=== PATIENT | female | born 1975 | race African-American/Black ===

== ENCOUNTER 2025-03-26 09:47 | Outpatient (CLI) | payer OTHER, SELFPAY ==
--- OUTSIDE RECORDS SUMMARY | 2025-03-26 10:11 | XMS_ITS | Clinical Summary ---
Author Organization [facility] Address [address] [place] [address] Care Team Providers Care Client Resolution Specialist Name Role Phone Dani Juarez MD Primary Care Provider Source Comments [facility],non-owned Affiliates and Associated Physician Practices is amultiple site organization consisting of ambulatory clinics and hospital sitesin [place], [place], [place] and [place]. This disclosure is being madepursuant to the Care Everywhere program and may not contain all information available regarding this patient. Last updated 18.[facility] Allergies No known active allergies Medications * Be aware that medications may not be up to date on this document. Alwaysverify current medications with the patient. chlorthalidone (HYGROTON) 25 MG tablet TK 1 T PO QD 3 8 Active azelastine-flutic asone (DYMISTA) 137-50 MCG/ACT nasal sprayIndications: Non-seasonal allergic rhinitis due to pollen Beatty 2 sprays into each nostril once daily 1 bottles 5 8 Active beclomethasone dipropionate (QVAR) 80 MCG/ACT inhalerIndication s:Severe persistent asthma without complication (HCC) Inhale 1 puff by mouth 2 times daily 1 Inhaler 5 8 Active NebulizerIndicati ons:Moderate persistent asthma without complication (HCC) Use as directed 1 Each 0 Active Nebulizer Use as directed 1 Each 1 Active Nebulizers (DME MISC SUPPLY)Indication s:Severe persistent asthma without complication (HCC) Use as directed 1 Each 1 Active aspirin EC (ECOTRIN) 81 MG tablet 1 Active busPIRone (BUSPAR) 7.5 MG tablet buspirone 7.5 mg tablet Active Fluticasone-Salme terol,sensor, (AIRDUO DIGIHALER) 232-14 MCG/ACT AEPBIndications:S evere persistent asthma without complication (HCC) Inhale 1 puff by mouth 2 times daily 1 Each 11 1 Active amLODIPine (NORVASC) 5 MG tabletIndications :Primary hypertension Take 1 (one) tablet by mouth once daily 30 tablet 2 Active umeclidinium (INCRUSE ELLIPTA) 62.5 MCG/INH inhalerIndication s:Severe persistent asthma without complication (HCC) Inhale 1 (one) puff by mouth once daily 1 Each 11 2 Active beclomethasone HFA (QVAR REDIHALER) 80 MCG/ACT inhaler Inhale 1 (one) puff by mouth 2 times daily 10.6 g 5 2 Active fluticasone-salme terol (AIRDUO RESPICLICK 232/14) 232-14 MCG/ACT inhalerIndication s:Severe persistent asthma without complication (HCC) Inhale 1 (one) puff by mouth 2 times daily 1 Each 5 2 Active budesonide-formot jeramie (Symbicort) 160-4.5 MCG/ACT inhalerIndication s:Severe persistent asthma without complication (HCC) Inhale 1 (one) puff by mouth 2 times daily 10.2 g 11 4 Active albuterol (Proventil;Ventol in) (2.5 MG/3ML) 0.083% nebulizer solutionIndicatio ns:Severe persistent asthma without complication (HCC) Inhale 2.5 (two and one-half) mg by mouth every 4 hours as needed for Shortness of Breath 75 mL 11 4 Active predniSONE (Deltasone) 20 MG tabletIndications :Severe persistent asthma with exacerbation (HCC) Take 1 (one) tablet by mouth once daily 5 tablet 4 Active albuterol HFA (Proventil; Ventolin; Proair) 108 (90 Base) MCG/ACT inhalerIndication s:Severe persistent asthma, unspecified whether complicated (HCC) Inhale 2 (two) puffs by mouth every 4 hours as needed for Wheezing 18 g 11 5 Active montelukast (Singulair) 10 MG tabletIndications :Severe persistent asthma without complication (HCC) Take 1 tablet daily 30 tablet 11 5 Active predniSONE (Deltasone) 20 MG tabletIndications :Severe persistent asthma with exacerbation (HCC) Take 1 (one) tablet by mouth once daily 5 tablet 1 5 Active Active Problems Problem Noted Date Diagnosed Date Severe persistent asthma without complication Encounters Date Type Department Care Team Description 02/16/2025 9:15 AM CDT - 02/16/2025 11:59 PM CDT Hospital Encounter [facility] [address] [place] [address] Discharge Disposition: Home or Self Care 02/16/2025 8:30 AM CDT Office Visit [facility] - Pulmonology [address] [place] [address] Heather Scruggs MD Severe persistent asthma with exacerbation (HCC) (Primary Dx) 02/16/2025 Travel from Last 3 Months Family History Medical History Relation Name Comments Cancer - Breast Maternal Aunt Cancer - Breast Sister Relation Name Status Comments Maternal Aunt Sister Social History Tobacco Use Types Packs/Day Years Used Date Smoking Tobacco: Never Smokeless Tobacco: Never Tobacco Cessation:Counseling Given: Not Answered Alcohol Use Standard Drinks/Week Comments Yes 0 (1 standard drink = 0.6 oz pur e alcohol) socially Comments No Sex and Gender Information Value Date Recorded Sex Assigned at Not on file 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 Gender Identity Not on file Sexual Orientation Not on file Last Filed Vital Signs Vital Sign Reading Time Taken Comments Blood Pressure 151/103 02/16/2025 8:29 AM CDT Pulse 61 02/16/2025 8:29 AM CDT Temperature 36.8 C (98.3 F) 02/16/2025 8:29 AM CDT Respiratory Rate 17 02/16/2025 8:29 AM CDT Oxygen Saturation 97% 02/16/2025 8:29 AM CDT Inhaled Oxygen Concentration - - Weight 91.3 kg (201 lb 3.2 oz) 02/16/2025 8:29 A M CDT Height 162.6 cm (5' 4) 02/16/2025 8:29 AM CDT Body Mass Index 34.54 02/16/2025 8:29 AM CDT Plan of Treatment Upcoming Encounters Date Type Department Care Team (Late st Contact Info) Description 06/22/2025 8:30 AM CDT Office Visit [facility] - [facility] [place] [id number] Heather Scruggs MD [address] [place] [address] [address] DIV OF PULMONARY/[place] [address] Health Maintenance Due Date Last Done Comments COLOGUARD (AGES 45-75) - COLON CA SCREENING 1976 COLON MONITORING 1976 COLONOSCOPY - COLON CA SCREENING 1976 CT COLONOGRAPHY - COLON CA SCREENING 1976 Colorectal Cancer Screening 1976 FIT - COLON CA SCREENING 1976 FLEX SIG - COLON CA SCREENING 1976 LIPID TESTING 1976 MAMMOGRAM 1976 HIV SCREENING 1991 HEPATITIS C SCREENING 10/12/1994 DTAP/TDAP/TD VACCINES (1 - Tdap) 1995 HEPATITIS B VACCINE (1 of 3 - 19+ 3-dose series) 1995 PNEUMOCOCCAL VACCINE (1 of 2 - PCV) 1995 PAP SMEAR 1997 COVID-19 VACCINE (1 - season) 2024 DEPRESSION SCREENING 08/30/2024 INFLUENZA VACCINE (#1) 2025 SCREENING FOR DIABETES 02/05/2026 3, 02/05/2023, 10/11/2021, Additional history exists ZOSTER VACCINE (1 of 2) 2026 HIB VACCINE Aged Out No longer eligi ble based on patient's age to complete this topic HPV VACCINE Aged Out No longer eligi ble based on patient's age to complete this topic MENINGOCOCCAL (Group B) VACCINE SHARED DECISION-MAKING Aged Out No longer eligible based on patient's age to complete this topic MENINGOCOCCAL GROUPS A/C/Y/W VACCINE Aged Out No longer eligible based on patient's age to complete this topic Procedures Procedure Name Priority Date/Time Associated Diagnosis Comments CBC W AUTO DIFFERENTIAL Routine 02/16/2025 9:34 AM CDT Severe persistent asthma with exacerbation (HCC) from Last 3 Months Results * CBC W/ DIFFERENTIAL (02/16/2025 9:34 AM CDT) WBC 5.1 4.0 - 10.7 x10E9/L 02/16/2025 10:22 AM [facility] RBC Count 4.79 3.90 - 5.20 x10E12/L 02/16/2025 10:22 AM [facility] Hemoglobin 13.2 11.9 - 15.8 g/dL 02/16/2025 10:22 AM [facility] Hematocrit 41.2 34.8 - 46.1 % 02/16/2025 10:22 AM [facility] MCV 86.0 80.0 - 98.0 fL 02/16/2025 10:22 AM [facility] MCH 27.6 26.7 - 33.6 pg 02/16/2025 10:22 AM [facility] MCHC 32.0 31.7 - 36.3 g/dL 02/16/2025 10:22 AM [facility] RDW-CV 14.0 11.3 - 14.8 % 02/16/2025 10:22 AM [facility] Platelet Count 282 150 - 420 x10E9/L 02/16/2025 10:22 AM [facility] MPV 10.0 7.8 - 11.4 fL 02/16/2025 10:22 AM [facility] Neutrophil % 43.3 41.0 - 74.0 % 02/16/2025 10:22 AM [facility] Lymphocyte % 41.1 17.0 - 47.0 % 02/16/2025 10:22 AM [facility] Monocyte % 7.7 3.0 - 11.0 % 02/16/2025 10:22 AM [facility] Eosinophil % 6.7 0.0 - 7.0 % 02/16/2025 10:22 AM [facility] Basophil % 1.0 0.0 - 1.6 % 02/16/2025 10:22 AM [facility] Immature Granulocytes % 0.2 0.0 - 1.0 % 02/16/2025 10:22 AM [facility] Neutrophil Absolute 2.19 1.60 - 7.50 x10E9/L 02/16/2025 10:22 AM [facility] Lymphocyte Absolute 2.08 1.00 - 4.40 x10E9/L 02/16/2025 10:22 AM [facility] Monocyte Absolute 0.39 0.15 - 1.00 x10E9/L 02/16/2025 10:22 AM [facility] Eosinophil Absolute 0.34 0.00 - 0.60 x10E9/L 02/16/2025 10:22 AM [facility] Basophil Absolute 0.05 0.00 - 0.13 x10E9/L 02/16/2025 10:22 AM [facility] Blood BLOOD SPECIMEN / Unknown Lab Venipuncture / Unknown 02/16/2025 9:34 AM CDT 02/16/2025 10:00 AM [facility] us Heather Scruggs MD LAB - HEMATOLOGY ORDERABLES Fi nal Result [facility] [address] [place] [address], [facility] [phone] from Last 3 Months Insurance [facility] [place] [address] [place] [address] [place] [address] [place] [address] [place] [address] Care Teams Client Resolution Specialist Relationship Specialty [place] [address] [place] [phone] PCP - General 01/20/18
--- OUTSIDE RECORDS SUMMARY | 2025-03-26 10:11 | XMS_ITS | Clinical Summary ---
Author Organization [facility] Address [facility] [place] [address] Care Team Providers Care Sponge Hooker Name Role Phone Dani Juarez MD Primary Care Provider [phone] Allergies No known active allergies Medications diclofenac EC (VOLTAREN) 75 MG tablet Take 1 tablet (75 mg total) by mouth 2 (two) times daily as needed. 30 tablet 3 Active ondansetron (ZOFRAN-ODT) 4 MG disintegrating tablet Take 1 tablet (4 mg total) by mouth every 4 (four) hours as needed for Nausea. 20 tablet 3 Active oxyCODONE-acetamino phen (PERCOCET) 5-325 MG tabletIndications:A cute Pain < 3 Day Supply Take 1 tablet by mouth every 6 (six) hours as needed for Pain. 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 Gender Identity Not on file Sexual Orientation Not on file Last Filed Vital Signs Vital Sign Reading Time Taken Comments Blood Pressure 147/85 02/05/2023 11:30 PM CDT Pulse 53 02/05/2023 11:30 PM CDT Temperature 36.2 C (97.2 F) 02/05/2023 9:18 PM CDT Respiratory Rate 18 02/05/2023 11:3 0 PM CDT Oxygen Saturation 100% 02/05/2023 11: 30 PM CDT Inhaled Oxygen Concentration - - Weight 92.9 kg (204 lb 12.9 oz) 023 10:34 PM CDT Height 165.1 cm (5' 5) 02/05/2023 10:2 8 PM CDT Body Mass Index 34.08 02/05/2023 10:28 PM CDT Plan of Treatment Health Maintenance Due Date Last Done Comments Colorectal Cancer Screening Colonoscopy (10 Years) 1976 Annual Physical 1979 Hepatitis C 1994 Mammogram Screening 2016 Hepatitis B Vaccines (3 of 3 - 19+ 3-dose series) 10/31/2018 06/02/2018, 05/03/2018 COVID-19 Vaccine (2023-2 5 season) 2024 DTaP, Tdap and Td Vaccines ( 2 - Td or Tdap) 03/10/2027 03/10/2017 Meningococcal B Vaccine Aged Out No l onger eligible based on patient's age to complete this topic Meningococcal Vaccine Aged Out No maria t vern eligible based on patient's age to complete this topic Pneumococcal Vaccine: Pediatrics (0 to 5 Years) and At-Risk Patients (6 to 49 Years) Aged Out No longer eligible b ased on patient's age to complete this topic RSV Immunizations Under 20 Months Aged Out No longer eligible b ased on patient's age to complete this topic Insurance Care Teams Sponge Hooker Relationship Specialty Start Date End Date Dani Juarez MD PCP - General INTERNAL MEDICINE 10/11/21
--- OUTSIDE RECORDS SUMMARY | 2025-03-26 10:11 | XMS_ITS | Data Portability ---
Author Organization [place] [facility] [employer], Main Office Address [address] [place] [address] Care Team Providers Care Telemarketing Representative Name Role Phone AMBER BANG Primary Care Provider AMBER BANG Referring Provider [phone] Assessment Encounter Date Assessment Date Assessment LastModified by Organization Details LastModified Time 06/05/2024 06/05/2024 48-year-old female presents for a new problem of her right knee. She has a history of a left knee meniscus repair. The left knee is doing well, she is reporting some new pain developing in her right knee which feels similar to her left side. She currently rates pain as 2/10. She has not had any treatments but feels like she wants to get physical therapy on her knee. She has tenderness palpation over the mediolateral joint line. Range motion 0-140. Nonantalgic gait. Positive Nissa's. Stable ligaments. Neurovascular intact. X-rays were reviewed, demonstrating no acute bony abnormality, preserved joint space We will send her to physical therapy for her right knee. She may follow-up with us after the course of PT if no improvement, as needed. [email or web address] Not available 06/06/2024 21:44:53 07/31/2024 07/31/2024 48-year-old patient presents today for right knee pain and swelling that has been going on for about 1 week. We previously saw her for right knee pain and sent her to physical therapy, which was helpful. She denies any new injury. She states the majority of her pain and swelling is posterior. She rates her pain 3/10. Her pain she has tried Aleve, ibuprofen, lidocaine, and Biofreeze. Imaging: X-rays reviewed show no acute bony abnormality, no fracture. Preserved joint spaces. Physical exam: 1+ edema. Tenderness with palpitation of posterior knee. Pain with deep flexion. Range of motion 0 to 130. Positive Nissa's. Stable ligaments. Sensation intact throughout. She would like to continue with conservative treatments. She would like to do physical therapy exercises on her own and return in 1 month if she is not feeling better. She states that the Aleve and ibuprofen are not working for her so we will order meloxicam. She can also try Voltaren gel. We will see her back in 1 month if she is still experiencing pain. She is in agreement with this plan. Not available 07/31/2024 12:04:51 09/11/2024 09/11/2024 48-year-old patient presents today for follow up of right knee pain and swelling. She wanted to try therapy exercises on her own, which has not been helping. She states the majority of her pain and swelling is posterior and now medial. Her pain she has tried Aleve, Meloxicam, ibuprofen, lidocaine, and Biofreeze. She does not want to try a cortisone injection. Physical exam: 1+ edema. Tenderness with palpitation of posterior and medial knee. Pain with deep flexion. Range of motion 0 to 120. Positive Nissa's. Stable ligaments. Sensation intact throughout. She would like to continue with conservative treatments. She would like to do formal physical therapy exercises . She can continue to take anti-inflammatori es as needed. We will see her back after therapy if she is still experiencing pain. We discussed that options then would be injection vs MRI. She is in agreement with this plan. Not available 09/11/2024 11:30:36 01/24/2025 01/24/2025 HPI: 49-year-old female presents today for a follow-up regarding her left knee pain. She has a history of a left knee partial medial meniscectomy performed in September 2022. Initially, she was doing well, with pain and popping being tolerable. However, recently her pain has become intolerable, localized to the medial side of the knee. She currently rates her pain as 5/10, and is experiencing associated instability while walking. Aggravating factors include difficulty with pushing, pulling, bending, and descending stairs. She denies any mechanical symptoms. She has tried Meloxicam, Aleve, Biofreeze, Icy Hot, and other topical treatments with minimal relief. She also denies any recent injuries. She also mentioned her right knee is also having pain. Physical Exam: General: Normal appearance. No acute distress. BMI 34.3 Inspection: No evidence of swelling, erythema, bruising or deformity. Palpation: Tenderness to palpation of the medial joint line ROM: 0-120 Special Test: Pain with terminal flexion. Mild pain with Mer, Negative Lachmann, No valgus or varus instability. Negative Posterior Draw. Motor: 5/5 strength. Sensation: Sensation intact. Imaging: Xray reviewed, demonstrating mild-moderate osteoarthritis with medial and patellofemoral compartments narrowing, bilaterally. Assessment & Plan: We discussed that she is most likely experiencing pain due to osteoarthritis. PT ordered for both knees. Rx for Celebrex. Meloxicam and OTC Aleve didn't provide much relief. Offered a cortisone injection, she declined, stating it previously did not help. Advised her to look into gel shots. Discussed the benefits of weight loss in managing osteoarthritis, such as reduced pain and pressure on the knees and decreased joint inflammation. Follow Up: As needed. All questions were answered. Patient verbalized understanding of treatment plan [email or web address] Not available 01/24/2025 17:35:30 03/22/2025 03/22/2025 This note is dictated and transcribed by [employer]. Nuclear Engineer variances may occur. Despite proofreading, typographical errors may occur. Occasional wrong-word or '[id number]' substitutions may have occurred due to the inherent limitations of voice recording. Read the chart carefully and recognize, using context, where substitutions have occurred. [email or web address] Not available 03/22/2025 12:41:27 Plan of Treatment Reminders Order Date Submit Date Provider Last Modified By Organization Details Last Modified Time Details Appointments Establish ed Patient 15 2024 09:30A Daly Spear DPM Not available Not available Not available Lab None recorded. Referral physical therapist referral 2024 025 [facility], [address] [place], [address], 03/22/2025 14:11:37 physical therapist referral - please contact patient to schedule for bilateral knee 2024 025 [facility], [address] [place], [address], 01/25/2025 08:30:33 physical therapist referral - Please contact pt to schedule for R knee. Thanks 2024 025 [facility], [address] [place], [address], 03/22/2025 16:20:51 physical therapist referral - patient will call to schedule 2023 024 [facility], [address] [place], [address], 08/22/2024 13:11:19 Procedures None recorded. Surgeries None recorded. Imaging XR, knee, 3 view 2024 025 [facility] [place], [address], [place], [address], 01/24/2025 17:36:01 XR, knee, 3 view 2023 024 [facility], [address] [place], [address], 08/02/2024 11:06:38 Medication Orders Celebrex 200 mg capsule 2024 025 [id number], [address], [place], [id number], 03/22/2025 14:03:32 Celebrex 200 mg capsule 2024 025 [id number], [address], [place], [id number], 01/24/2025 18:18:01 Mobic 15 mg tablet 2023 024 [email or web address] [id number], [address], [place], [place], [id number], 03/22/2025 13:54:32 Patient TargetsNo targets recorded. Patient InstructionsNo instructions recorded. Reason for Referral Physical Therapist Referral for Pain of right knee joint patient will call to schedule Referring Physician: Johnathan Jean, Orthopedic Surgery, Encounter Date: 06/05/2024 Physical Therapist Referral for Tear of meniscus of knee R knee pain Please contact pt to schedule for R knee. Thanks Referring Physician: Rukhsana Vigil, Orthopedic Surgery, Encounter Date: 09/11/2024 Physical Therapist Referral for Pain of left knee joint bilateral knee please contact patient to schedule for bilateral knee Referring Physician: Brisa Galindo, Orthopedic Surgery, Encounter Date: 01/24/2025 Physical Therapist Referral for Left Achilles tendinitis Referring Physician: Pee Spear, Podiatric Surgery, Encounter Date: 03/22/2025 Results Created Date Observation Date Name Description Value Unit Range Abnormal Flag Note LastModifiedBy Organization Detail LastModifiedTime 07/31/20 24 XR, knee, 3 view No observ ation record ed. [email or web address] [facility] [place] [address], [place], [address], 07/31/2024 11:45:08 01/25/20 25 XR, knee, 3 view No observ ation record ed. [email or web address] [facility] [place] [address], [place], [address], 01/24/2025 17:36:01 Result Notes None recorded. Problems Name Problem SNOMED Code Status Onset Date Resolution Date Notes Provider Name and Address Organization Details Recorded Time Enlarged uterus 728976781 Completed Not Available [facility] 3 08:09:23 Uterine prolapse 58704632 Completed Not Available [facility] 3 08:09:24 Vaginal discharge 013013451 Active Not Available [facility] 3 08:09:24 Pain in pelvis 69616546 Completed Not Available [facility] 3 08:09:24 Foot pain 88982806 Active Not Available [facility] 3 08:09:25 Syphilis 87421137 Active Not Available [facility] 3 08:09:25 Irregular periods 88666663 Completed Not Available [facility] 3 08:09:25 Body mass index 30+ - obesity 435100305 Active 2017 Not Available [facility] 3 08:09:23 Dyspnea 567410917 Active 2017 Not Available [facility] 3 08:09:24 Pulmonary eosinophi kandy 233168539 Active 2017 Not Available [facility] 3 08:09:24 Hypertens solomon disorder 81383633 Active 2017 Not Available [facility] 3 08:09:24 Chronic sinusitis 60872886 Active 2017 Not Available [facility] 3 08:09:24 Obstructi ve sleep apnea syndrome 57477434 Active 2017 Not Available [facility] 3 08:09:25 Pain in right foot 19072188845 9107 Active 2021 Not Available [facility] 3 08:09:24 Insertion al Achilles tendinopa thy 962227044 Active 2021 Not Available [facility] 3 08:09:25 Plantar fasciitis of left foot 11010405290 901847 Active 2021 Not Available [facility] 3 08:09:23 Plantar fasciitis of right foot 76878066623 910259 Active 2021 Not Available [facility] 3 08:09:23 Pain in left foot 51991968523 9107 Active 2021 Not Available [facility] 3 08:09:24 Foot pain 89293521 Active 2021 Not Available [facility] 3 08:09:24 Tear of meniscus of knee 472341271 Active 2021 Not Available [facility] 3 08:09:24 Pain of left knee joint 54368547647 4107 Active 2021 Not Available [facility] 3 08:09:24 Right Achilles tendiniti s 52743848583 9102 Active 2021 Not Available [facility] 3 08:09:24 Calcaneal spur of right foot 11863184310 9100 Active 2021 Not Available [facility] 3 08:09:24 Tear of meniscus of knee 009725970 Active 2022 Not Available [facility] 3 08:09:23 Calcaneal spur 11907391 Active 2022 Pee Spear DPM [address], [place], [address] , [facility] 3 11:26:41 Subungual hematoma of great toe of right foot 32465497614 263601 Active 2023 Pee Spear DPM [address], [address], [place], [address] , [facility] 4 17:17:19 Pain of toe of right foot 85052974005 9101 Active 2023 Pee Spear DPM [address], [address], [place], [address] , [facility] 4 17:17:28 Pain of right knee joint 80595475493 4100 Active 2023 Felicia holbrook, [place] [facility] 4 12:06:48 Bilateral osteoarth ritis of knees 57817951470 9107 Active 2024 Brisa Galindo PA-C [address], [address], [place], [address] , [facility] [employer] [facility] 5 17:35:48 Bilateral plantar fasciitis 10484050228 683800 Active 2024 Pee Spear DPM [address], [place], [address] , [facility] 13:53:12 Left Achilles tendiniti s 47714611984 9102 Active 2024 Pee Spear DPM [address], [facility] [address], [place], [address] , [facility] 13:53:17 Notes:Some problems listed i n Document: #[id number] could not be added to this patient's chart. Please review this document and add these problems to the patient's chart manually as needed. Problem Notes None recorded. Procedures Surgical History Date Name Laterality Status Provider Name and Address Organization Details Recorded Time 024 Nail Debridement completed Pee Spear DPM [address] [facility] [address], [place], [address], [facility] 09/28/2023 13:25:44 021 Most Recent Mammogram completed Not Available [facility] 10/28/2022 08:06:26 021 Sinus Surgery completed Not Available [facility] 10/28/2022 08:06:27 019 abdominal sacrocolpopexy using mesh completed Not Available [facility] 10/28/2022 08:06:27 016 SKEIN BANDER Surgery completed Not Available [facility] 10/28/2022 08:06:27 014 Date of Last Pap Smear completed Not Available [facility] 10/28/2022 08:06:26 013 Thyroid Surgery completed Not Available [facility] 10/28/2022 08:06:27 Gastrointestinal Surgery completed Not Available [facility] 10/28/2022 08:06:27 Knee completed SERGEY Mcknight [facility] 06/05/2024 11:46:38 Imaging Results None recorded. Procedure Notes None recorded. Medical Equipment None Reported. Allergies No known drug allergies Medications Name Sig Start Date Stop Date Status Note LastModified by Organization Details LastModified Time budesonid e 0.6mg/ml conc ADD 1ML (SQUEEZE 0.5ML TWICE=1M L DOSE) OF MEDICATI ON TO 250ML OF SALINE IN SALINE IRRIGATI ON BOTTLE; IRRIGATE SINUSES WITH 120ML THROUGH EACH NOSTRIL TWICE DAILY 09/07 completed Not Available Not Available Not Available budesonid e 0.6mg/ml falk ADD 1ML OF MEDICATI ON TO 250ML OF SALINE IN SALINE IRRIGATI ON BOTTLE; IRRIGATE SINUSES WITH 120ML THROUGH EACH NOSTRIL TWICE DAILY 05/06 completed Not Available Not Available Not Available cyclobenz aprine 10 mg tablet active Not Available Not Available No t Available amoxicill in 500 mg capsule TAKE 1 CAPSULE BY MOUTH THREE TIMES DAILY UNTIL ALL TAKEN 06/19 completed Not Available Not Available Not Available medroxypr ogesteron e 10 mg tablet TAKE 1 TABLET BY MOUTH EVERY DAY FOR 10 DAYS 03/17 completed Not Available Not Available Not Available prednison e 10 mg tablet 6 tablets for three days, 5 tablets for 3 days, 4 tablets for 3 days, 3 tablets for 3 days, 2 tablets for 3 days, 1 tablet for 3 days then off 09/07 completed Not Available Not Available Not Available Dilaudid 2 mg tablet Take 1 tablet every 4 hours by oral route. 07/04 completed Not Available Not Available Not Available doxycycli ne hyclate 100 mg capsule TAKE 1 CAPSULE BY MOUTH TWICE DAILY AFTER MEALS FOR 10 DAYS 06/19 completed Not Available Not Available Not Available cefuroxim e axetil 250 mg tablet TAKE 1 TABLET BY MOUTH TWICE DAILY 02/26 completed Not Available Not Available Not Available ipratropi um 0.5 mg-albute rol 3 mg (2.5 mg base)/3 mL nebulizat ion soln INHALE 1 VIAL VIA NEB QID active Not Available Not Available No t Available albuterol sulfate 2.5 mg/3 mL (0.083 %) solution for nebulizat ion NEBULIZE AND INHALE 1 VIAL BY MOUTH EVERY 4 HOURS NEEDED FOR SHORTNES S OF BREATH active Not Available Not Available No t Available azithromy sabrina 250 mg tablet Take 4 tablets every day by oral route as directed for 1 day. 06/19 completed Not Available Not Available Not Available ibuprofen 800 mg tablet 10/03 completed Not Available Not Available Not Available alprazola m 1 mg tablet TK 1 T PO QD PRN 03/17 completed Not Available Not Available Not Available Cytotec 200 mcg tablet Take 2 tablets by oral route at bedtime for 1 day. 02/07 completed Not Available Not Available Not Available fluconazo le 150 mg tablet TAKE 1 TABLET BY MOUTH EVERY 72 HOURS 11/24 completed Not Available Not Available Not Available hydrocodo ne 5 mg-acetam inophen 325 mg tablet TAKE 1 TABLET BY MOUTH EVERY 4 HOURS NEEDED FOR PAIN 11/24 completed Not Available Not Available Not Available Claritin 10 mg tablet 10/03 completed Not Available Not Available Not Available fluconazo le 200 mg tablet TAKE 1 TABLET BY MOUTH DAILY active Not Available Not Available No t Available meloxicam 15 mg tablet TAKE 1 TABLET BY MOUTH DAILY 03/22 completed Not Available Not Available Not Available metronida zole 0.75 % (37.5 mg/5 gram) vaginal gel INSERT 1 APPLICAT ORFUL VAGINALL Y DAILY AT BEDTIME FOR 5 DAYS 11/24 completed Not Available Not Available Not Available prednison e 20 mg tablet TAKE 1 TABLET BY MOUTH DAILY 03/22 completed Not Available Not Available Not Available medroxypr ogesteron e 5 mg tablet TAKE 1 TABLET BY MOUTH EVERY DAY 06/19 completed Not Available Not Available Not Available prednison e 5 mg tablet 03/17 completed Not Available Not Available Not Available clindamyc in HCl 150 mg capsule 06/19 completed Not Available Not Available Not Available metronida zole 500 mg tablet TAKE 1 TABLET BY MOUTH THREE TIMES DAILY 03/17 completed Not Available Not Available Not Available acetamino phen 300 mg-codein e 30 mg tablet TAKE 1 TABLET BY MOUTH EVERY 6 HOURS NEEDED FOR PAIN 06/19 completed Not Available Not Available Not Available chlorthal idone 25 mg tablet 10/03 completed Not Available Not Available Not Available amlodipin e 5 mg tablet TAKE 1 TABLET BY MOUTH EVERY DAY DIRECTED 05/15 completed Not Available Not Available Not Available sulfameth oxazole 800 mg-trimet hoprim 160 mg tablet TAKE 1 TABLET BY MOUTH TWICE DAILY 06/19 completed Not Available Not Available Not Available hydrocodo ne 10 mg-acetam inophen 325 mg tablet TK 1 T PO Q 4 H 09/07 completed Not Available Not Available Not Available tramadol 50 mg tablet TAKE 1 TABLET BY MOUTH EVERY 8 HOURS NEEDED 08/11 completed Not Available Not Available Not Available acetamino phen 500 mg tablet 08/11 completed Not Available Not Available Not Available triamcino lone acetonide 0.1 % topical cream APPLY TOPICALL Y TO THE AFFECTED AREA THREE TIMES DAILY 06/19 completed Not Available Not Available Not Available ketorolac 10 mg tablet TAKE 1 TABLET BY MOUTH FOUR TIMES DAILY FOR 4 DAYS NEEDED 08/11 completed Not Available Not Available Not Available Celebrex 200 mg capsule Take 1 capsule every day by oral route. 2024 active Not Available Not Available Not Avai lable meloxicam 7.5 mg tablet Take 1 tablet every day by oral route as needed for 30 days. active do not start taking this medicati on until completi on of the steroid pack Not Available Not Available Not Available oxycodone -acetamin ophen 5 mg-325 mg tablet TAKE 1 TABLET BY MOUTH EVERY 6 HOURS NEEDED FOR PAIN OR ACUTE PAIN 11/24 completed Not Available Not Available Not Available oxycodone -acetamin ophen 10 mg-325 mg tablet Take 1 tablet every 6 hours by oral route. 07/04 completed Not Available Not Available Not Available Kenalog 10 mg/mL suspensio n for injection In office injectio n administ ered by the provider 11/24 completed ND: [id number] 4-20 Not Available Not Available Not Available amlodipin e 10 mg tablet TAKE 1 TABLET BY MOUTH EVERY DAY DIRECTED FOR HYPERTEN MYNOR active Not Available Not Available No t Available doxycycli ne monohydra te 100 mg capsule 02/21 completed Not Available Not Available Not Available cephalexi n 500 mg capsule 10/03 completed Not Available Not Available Not Available triamcino lone acetonide 0.1 % topical ointment active Not Available Not Available Not Available polymyxin B sulfate 10,000 unit-trim ethoprim 1 mg/mL eye drops INSTILL 1 DROP IN RIGHT EYE EVERY 3 HOURS WHILE AWAKE FOR 7 DAYS 06/19 completed Not Available Not Available Not Available losartan 25 mg tablet TAKE 1 TABLET BY MOUTH DAILY active Not Available Not Available No t Available progester one micronize d 200 mg capsule TAKE 1 CAPSULE BY MOUTH EVERY DAY AT BEDTIME 11/24 completed Not Available Not Available Not Available hydrochlo rothiazid e 12.5 mg capsule TAKE 1 CAPSULE BY MOUTH EVERY DAY AROUND THE CLOCK 03/17 completed Not Available Not Available Not Available gabapenti n 300 mg capsule TAKE 1 CAPSULE BY MOUTH THREE TIMES DAILY DIRECTED active Not Available Not Available No t Available buspirone 7.5 mg tablet active Not Available Not Available Not Available omeprazol e 20 mg capsule,d elayed release TAKE 1 CAPSULE BY MOUTH EVERY DAY 11/24 completed Not Available Not Available Not Available Banophen 25 mg capsule TAKE 1 TABLET BY MOUTH EVERY 6 TO 8 HOURS NEEDED 06/19 completed Not Available Not Available Not Available aspirin 81 mg chewable tablet CHEW AND SWALLOW ONE TABLET ONCE DAILY 05/06 completed Not Available Not Available Not Available diclofena c sodium 75 mg tablet,de layed release TAKE 1 TABLET BY MOUTH TWICE DAILY NEEDED 11/24 completed Not Available Not Available Not Available monteluka st 10 mg tablet TAKE 1 TABLET BY MOUTH DAILY active Not Available Not Available No t Available hydroxyzi ne HCl 25 mg tablet 06/19 completed Not Available Not Available Not Available ibuprofen 600 mg tablet TAKE 1 TABLET BY MOUTH EVERY 6 HOURS NEEDED 08/11 completed Not Available Not Available Not Available polyethyl seema glycol 3350 17 gram/dose oral powder 11/24 completed Not Available Not Available Not Available levofloxa sabrina 500 mg tablet Take 1 tablet every 24 hours by oral route. 07/04 completed Not Available Not Available Not Available oxycodone -acetamin ophen 7.5 mg-325 mg tablet TAKE 1 TABLET BY MOUTH EVERY 4 TO 6 HOURS NEEDED 03/17 completed Not Available Not Available Not Available estradiol 0.01% (0.1 mg/gram) vaginal cream USE 1 GRAM VAGINALL Y 3 TIMES A WEEK active Not Available Not Available No t Available methylpre dnisolone 4 mg tablets in a dose pack FOLLOW PACKAGE DIRECTIO NS 06/19 completed Not Available Not Available Not Available albuterol sulfate HFA 90 mcg/actua tion aerosol inhaler INHALE 2 PUFFS BY MOUTH EVERY 4 HOURS NEEDED FOR WHEEZING active Not Available Not Available No t Available oxybutyni n chloride 5 mg tablet Take 1 tablet twice a day by oral route. active Not Available Not Available No t Available ondansetr on 4 mg disintegr ating tablet TAKE 1 TABLET BY MOUTH EVERY 4 HOURS NEEDED FOR NAUSEA 11/24 completed Not Available Not Available Not Available cefdinir 300 mg capsule TAKE 1 CAPSULE BY MOUTH EVERY 12 HOURS 06/19 completed Not Available Not Available Not Available fluticaso ne propionat e 50 mcg/actua tion nasal spray,angela pension SHAKE LIQUID AND USE 2 SPRAYS IN EACH NOSTRIL TWICE DAILY 06/19 completed Not Available Not Available Not Available naproxen 500 mg tablet TAKE 1 TABLET BY MOUTH TWICE DAILY WITH FOOD 06/19 completed Not Available Not Available Not Available amoxicill in 875 mg-potass ium clavulana te 125 mg tablet TAKE 1 TABLET BY MOUTH TWICE DAILY 09/07 completed Not Available Not Available Not Available escitalop ely 10 mg tablet TAKE 1 TABLET BY MOUTH EVERY DAY DIRECTED 03/17 completed Not Available Not Available Not Available Laxative (bisacody l) 5 mg tablet AT 2PM THE DAY BEFORE PREP TAKE 4 TABLETS BY MOUTH WITH 8 OZ OF WATER 11/24 completed Not Available Not Available Not Available Premarin 0.625 mg/gram vaginal cream INSERT 1 GRAM VAGINALL Y TWO TO THREE TIMES PER WEEK 11/24 completed Not Available Not Available Not Available TriNessa (28) 0.18 mg(7)/0.2 15 mg(7)/0.2 5 mg(7)-35 mcg tablet TK 3 TS PO D FOR 3 DAYS 2 TS D X2 DAYS THEN 1 T PO D UNTIL SCHEDULE D PROCEDUR E active Not Available Not Available No t Available lactulose 10 gram/15 mL oral solution 09/07 completed Not Available Not Available Not Available Symbicort 160 mcg-4.5 mcg/actua tion HFA aerosol inhaler INHALE 1 PUFF BY MOUTH TWICE DAILY active Not Available Not Available No t Available Symbicort 80 mcg-4.5 mcg/actua tion HFA aerosol inhaler 02/21 completed Not Available Not Available Not Available Allergy Relief (fexofena dine) 180 mg tablet TAKE 1 TABLET BY MOUTH EVERY DAY NEEDED 06/19 completed Not Available Not Available Not Available ropivacai ne (PF) 5 mg/mL (0.5 %) injection solution Take 20 mg by injectio n route. 11/24 completed Not Available Not Available Not Available lactulose 10 gram/15 mL (15 mL) oral solution Take 30 mL twice a day by oral route. 09/07 completed Not Available Not Available Not Available Aerospan 80 mcg/actua tion HFA aerosol inhaler INHALE 2 PUFFS PO BID 03/17 completed Not Available Not Available Not Available Virtussin AC 10 mg-100 mg/5 mL oral liquid TK 10 ML PO QID PRF COUGH 02/21 completed Not Available Not Available Not Available Virtussin AC 02/21 completed Not Available Not Available Not Available Incruse Ellipta 62.5 mcg/actua tion powder for inhalatio n 06/19 completed Not Available Not Available Not Available fluticaso ne 232 mcg-salme terol 14 mcg/actua tion breath activated powdr 03/07 completed Not Available Not Available Not Available Qvar RediHaler 80 mcg/actua tion HFA breath activated aerosol INAHLE 1 PUFF PO BID 03/17 completed Not Available Not Available Not Available Wixela Inhub 250 mcg-50 mcg/dose powder for inhalatio n INHALE 1 PUFF BY MOUTH TWICE DAILY 03/17 completed Not Available Not Available Not Available Vitals Date Recorded Body height Body mass index (BMI) Body weight Pain severity - 0-10 verbal numeric rating [Score] - Reported Provider Name and Address Organization Details Last Updated DateTime 09/11/2024 162.56 cm 34.3 kg/m2 84054.47 g SERGEY Mcdonnell [place] 09/11/2024 11:00:51 Date Recorded Body height Body mass index (BMI) Body weight Provider Name and Address Organization Details Last Updated DateTime 01/24/2025 162.56 cm 34.3 kg/m2 35418.47 g Belle Gill CNA [place] [facility] [employer] 01/24/2025 14:01:39 Date Recorded Body height Body mass index (BMI) Body weight Heart rate Respiratory rate Oxygen saturation Oxygen saturation in Arterial blood by Pulse oximetry Systolic And Diastolic Provider Name and Address Organization Details Last Updated DateTime 162.56 cm 34.3 kg/m2 20958.4 7 g 71 /min 14 /min 99 % 99 % 142/97 mm[Hg] Niurka Ulisses [facility] 12:24:17 Date Recorded Body height Body mass index (BMI) Body weight Pain severity - 0-10 verbal numeric rating [Score] - Reported Provider Name and Address Organization Details Last Updated DateTime 06/05/2024 165.1 cm 34.6 kg/m2 65069.21 g 2 [place] [facility] 06/05/2024 11:38:42 Date Recorded Body height Body mass index (BMI) Body weight Provider Name and Address Organization Details Last Updated DateTime 07/31/2024 162.56 cm 34.3 kg/m2 01577.47 g Aileen De La Cruz [facility] 07/31/2024 11:16:40 Social History Question Answer Notes LastModified by Azaleos Details LastModified Time Tobacco Smoking Status Never Smoker Not Available [facility] 10/28/2022 08:06:24 What Is Your Level Of Caffeine Consumption? None [id number] Information not available 10/28/2022 In The 14 Days Before Symptom Onset, Have You Had Close Contact With A Laboratory-confirm ed COVID-19 While That Case Was Ill? No [id number] Information not available 10/28/2022 In The 14 Days Before Symptom Onset, Have You Had Close Contact With A Person Who Is Under Investigation For COVID-19 While That Person Was Ill? No [id number] Information not available 10/28/2022 Which Illicit Or Recreational Drugs Have You Used? None [id number] Information not available 10/28/2022 What Was The Date Of Your Most Recent Tobacco Screening? 07/31/2024 Information not available 07/31/2024 Sex: Unknown Functional Status Question Answer Note LastModified by Azaleos Details LastModified Time What is your level of alcohol consumption? 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 Never used electronic cigarettes [id number] Information not available 10/28/2022 What is your exercise level? None [id number] Information not available 10/28/2022 Mental Status None recorded. Family History Relationship Description Onset Age of this Age Resolved Age Notes LastModified by Organization Details LastModified Time Mother Cerebrovascu lar accident [id number] Not available 10/28/2022 08:06:28 Mother Hypertensive disorder [id number] Not available 10/28/2022 08:06:28 Mother Ruptured cerebral aneurysm [id number] Not available 10/28/2022 08:06:28 Mother Diabetes mellitus [id number] Not available 10/28/2022 08:06:28 Father Heart disease [id number] Not available 10/28/2022 08:06:28 Father Kidney disease [id number] Not available 10/28/2022 08:06:28 Medical History Condition Response ANXIETY DISORDER Y FEMALE PROBLEMS / INFECTIONS Y DEPRESSION (INCLUDING POST ) Y HYPERTENSION Y Gynecological History Statement/Question Response Abnormal Pap N Date of Last Mammogram 07/14/2019 Date of Last Pap 01/18/2014 Date of Last Pap Smear 01/18/2014 Current Control Method Hysterectom y Age at Menarche 11 Most Recent Mammogram 08/13/2021 Breast Problems occasional bilateral tenderness Obstetrics History GPAL:G 8 P 3 0 5 3 Type Value Full Term 3 Induced 4 Spontaneous 1 Living 3 Total 8 Past Encounters Encounter ID Performer Location Encounter Start Date Encounter Closed Date Diagnosis/Indication Diagnosis SNOMED-CT Code Diagnosis ICD10 Code Diagnosis Note [id number] [facility]_ DEFAULT_1 _1 , 12/10/2020 00:00:00 12/10/2020 10:22:08 [id number] [facility] _[facility]_M [facility]_ DEFAULT_1 _1 , 01/20/2021 00:00:00 01/20/2021 10:33:22 [id number] [facility] _[facility]_M IGR[facility]_ DEFAULT_1 _1 , 01/21/2021 00:00:00 01/21/2021 12:19:06 [id number] [facility]_ DEFAULT_1 _1 , 02/26/2021 00:00:00 02/26/2021 10:33:33 [id number] [facility]_ DEFAULT_1 _1 , 03/17/2021 00:00:00 03/17/2021 16:10:16 [id number] [facility] [place] [address] [place] [address] 12/08/2021 00:00:00 12/08/2021 13:32:21 [id number] [facility] [place] [address] [place] [address] 01/12/2022 00:00:00 01/12/2022 13:19:07 [id number] [facility] [place] [address] [place] [address] 03/23/2022 00:00:00 03/23/2022 15:29:36 [id number] [facility] [place] [address] [place] [address] 04/13/2022 00:00:00 04/13/2022 10:22:10 [id number] Johnathan Jean MD [facility] [place] [address] [place] [address] 06/19/2022 00:00:00 06/19/2022 11:08:36 [id number] Pee Spear DPM [facility] [place] [address] [facility] [address] [place] [address] 08/11/2022 00:00:00 08/11/2022 14:19:10 [id number] Johnathan Jean MD [facility] [place] [address] [place] [address] 08/28/2022 00:00:00 08/28/2022 13:47:15 [id number] Johnathan Jean MD [facility] [place] [address] [place] [address] 09/09/2022 00:00:00 09/14/2022 10:23:23 [id number] Pee Spear DPM [facility] Pod[facility] [place] [address] [facility] [address] [place] [address] 09/15/2022 00:00:00 09/15/2022 12:59:22 [id number] Johnathan Jean MD [facility] [place] [address] [place] [address] 2022 00:00:00 2022 14:23:36 [id number] Johnathan Jean MD [facility] [place] [address] [place] [address] 10/23/2022 00:00:00 10/23/2022 17:18:57 [id number] Johnathan Jean MD [facility] [place] [address] [place] [address] 11/13/2022 10:04:13 11/13/2022 10:37:06 Tear of meniscus of knee [id number] S83.207D [id number] Johnathan Jean MD [facility] [place] [address] [place] [address] 12/02/2022 10:50:44 12/02/2022 11:12:12 [id number] Pee Spear DPM [facility] [place] [address] [place] [address] 12/24/2022 12:28:21 12/24/2022 14:06:17 Right Achilles tendinitis [id number] 00110 M76.61 Insertiona l Achilles injection- previous did not see a lot of symptom reliefnot wearing cam bootcontin ue rice therapyRx physical therapy- currently in has helped but continues to have discomfort with extended weight-monika ringpatien t has been discharged from orthopedic sdiscussed surgical and conservati ve options at length, patient elects to continue with retrocalca twyla exostectom y of the right heel. obtain surgical clearancea ll risks, benefits, complicati ons were reviewed with the patient to her full and complete understand ing. Patient understand s she may continue to have pain despite correction and removal of the spur. Patient may have weakening of the Achilles tendon which could cause rupture, painful scar, wound healing complicati ons, infection, continued pain, hardware failure, bone infection, loss of leg, CRPS. Patient elects to continue with the above planned procedure. Calcaneal spur [id number] M77.31 as above [id number] Rukhsana Vigil NP [facility] [place] [address] [place] [address] 03/24/2023 14:14:13 03/24/2023 14:38:07 Pain of left knee joint 5391220332 75263 M25.150 [id number] Johnathan Jean MD [facility] Orth[facility] [address] [address] 05/10/2023 10:07:37 05/10/2023 10:45:23 Tear of meniscus of knee 899335237 S83.207D Pain of le ft knee joint 2670844032 11060 M25.909 [id number] Pee Spear DPM [facility] [place] [address] [place] [address] 09/27/2023 15:54:13 09/29/2023 10:00:30 Subungual hematoma of great toe of right foot 0902277308 0674557 S90.211A great toenail was debridedof floadingfo llow up in 2 weeks if cont painful with obtain xrays and biopsy nail bed Pain of to e of right foot 1745510149 48293 M79.674 Great toe [id number] Pee Spear DPM [facility] Pod[facility] [place] [address] [place] [address] 11/25/2023 10:40:58 11/25/2023 12:24:07 Subungual hematoma of great toe of right foot 9875887863 9002336 S90.211A Resolvedal lowed nail to completely re-growfol low-up as needed [id number] Johnathan Jean MD [facility] [address] 06/05/2024 11:26:46 06/05/2024 12:18:41 Pain of right knee joint 1683377922 56145 M25.180 [id number] Johnathan Jean MD [place] [address] 07/31/2024 11:04:59 07/31/2024 11:37:43 Pain of right knee joint 7629521640 40999 M25.115 [id number] Johnathan Jean MD [place] [address] 09/11/2024 10:59:12 09/11/2024 11:22:31 Tear of meniscus of knee 955710714 S83.207D [id number] Johnathan Jean MD [facility] [place] [address] [place] [address] 01/24/2025 13:59:11 01/24/2025 15:06:05 Pain of left knee joint 1540683581 31533 M25.562 Bilateral osteoarthritis of knees 6592573226 54873 M17.0 [id number] Pee Spear DPM [facility] [place] [address] [place] [address] 03/22/2025 12:15:59 03/23/2025 15:15:45 Bilateral plantar fasciitis 3449499521 0863780 M72.2 continue celecoxib, refillreco mmend supportive shoe gearStretc lauren exercises dispensedR ice therapy reviewedFo llow-up in 6 weeks Left Achil les tendinitis 7464696631 83525 M76.62 as above Pain of le ft knee joint 9516890728 12907 M25.562 Health Concerns Section Related Observation LastModified by Organization Detai ls LastModified Time None Recorded Concern Status LastModified by Organization Details LastModified Time None Recorded Advance Directives Directive None Recorded Payers Insurance Date Sequence Insurance Name Policy Number Policy Todd Covered Member ID Todd Member ID Guarantor Name 03/22/2025 1 [facility] - DOS ON OR AFTER 21 (MEDICAID REPLACEMENT - HMO) [place]one Park [id number] [place] [place] OBGyn Episode No OBEpisode recorded.
--- OUTSIDE RECORDS SUMMARY | 2025-03-26 10:11 | XMS_ITS | Referral Summary ---
Author Organization [facility] Address [address] [place] [address] Care Team Providers Care Anime Designer Name Role Phone Dani Juarez MD Primary Care Provider Encounters Date Type Department Care Team Description 03/19/2025 9:20 AM CDT Office Visit [facility] ([facility] [address] [facility] 11th [place] [address] [place] [address] Wilfredo Mtz MD Multiple nasal polyps (Primary Dx); Chronic pansinusitis from Last 3 Months Allergies No known active allergies Medications aspirin 81 mg chewable tabletIndicati ons:Family history heart disease Take 81 mg by mouth nightly Active albuterol 2.5 mg /3 mL (0.083 %) nebulizer solutionIndica tions:Acute Asthma Attack Take 2.5 mg by nebulization every 4 (four) hours as needed Active benralizumab (FASENRA PEN SUBQ)Indicatio ns:Asthma Inject under the skin every 8 (eight) weeks Active albuterol HFA (PROVENTIL HFA,VENTOLIN HFA,PROAIR HFA) 90 mcg/actuation inhalerIndicat ions:Acute Asthma Attack Inhale 2 puffs every 6 (six) hours as needed for wheezing or shortness of breath Active budesonide-for moteroL (SYMBICORT) 160-4.5 mcg/actuation inhalerIndicat ions:Maintenan ce Therapy for Asthma Inhale 2 puffs 2 (two) times a day Rinse mouth with water after use. Do not swallow. Active amLODIPine (NORVASC) 5 mg tablet Take 5 mg by mouth daily 2 Active predniSONE (DELTASONE) 10 mg tabletIndicati ons:Chronic Sinusitis Take 40 mg by mouth for 3 days,Then take 30 mg by mouth for 3 days,Then take 20 mg by mouth for 3 days,Then take 10 mg by mouth for 3 days 30 tablet 4 Active budesonide (PULMICORT) 0.5 mg/2 mL nebulizer solution Mix 1 capsule/ampule in 250 mL of saline irrigations (NeilMed Sinus Rinse Bottle) and irrigate each nostril with half of the bottle twice daily. 120 mL 6 5 Active budesonide (PULMICORT) 0.5 mg/2 mL nebulizer solution Mix 1 capsule/ampule in 250 mL of saline irrigations (NeilMed Sinus Rinse Bottle) and irrigate each nostril with half of the bottle twice daily. 120 mL 6 4 025 Discontin ued(Reord er) Active Problems Problem Noted Date Diagnosed Date Severe persistent asthma without complication Deviated nasal septum 06/15/2022 Multiple nasal polyps 05/18/2022 Hypertrophy of nasal turbinates 05/18/2022 Chronic sinusitis 05/18/2022 Social History Tobacco Use Types Packs/Day Years Used Date Smoking Tobacco: Never Passive Smoke Exposure: Never Smokeless Tobacco: Never Tobacco Cessation:Counseling Given: Not Answered AUDIT-C Answer Date Recorded Q1: How often do you have a drink containing alc ohol? 2-4 times a month 07/07/2022 Q2: How many drinks containi ng alcohol do you have on a typical day when you are drinking? 1 or 2 07/07/2022 Q3: How often do you have si x or more drinks on one occasion? Never 07/07/2022 Comments No Sex and Gender Information Value Date Recorded Sex Assigned at Not on file Legal Sex Female 10:44 PM AGENT [employer] Gender Identity Not on file Sexual Orientation Not on file Last Filed Vital Signs Vital Sign Reading Time Taken Comments Blood Pressure 154/98 07/07/2022 2:15 PM [employer]ENT [employer] Pulse 76 07/07/2022 2:15 PM AGENT [employer]ER Temperature 36.3 C (97.3 F) 07/07/2022 12:30 PM AGENT BROKER Respiratory Rate 14 07/07/2022 2:15 PM AGENT BROKER Oxygen Saturation 93% 07/07/2022 2:15 PM AGENT BROKER Inhaled Oxygen Concentration - - Weight 99.8 kg (220 lb) 03/19/2025 8:42 AM CDT Height 165.1 cm (5' 5) 07/07/2022 9:40 AM AGENT BROKER Body Mass Index 36.61 07/07/2022 9:40 AM AGENT BROKER Plan of Treatment Not on file Insurance Care Teams Anime Designer Relationship Specialty Start Date End Date Dani Juarez MD [address] [place] [address] PCP - General Internal Medicine 04/08/22
--- OUTSIDE RECORDS SUMMARY | 2025-03-26 10:11 | XMS_ITS | Encounter Summary ---
Author Organization [facility] Address [address] [facility] [facility] [place] [address] Care Team Providers Care Assistant Community Manager Name Role Phone Dani Juarez MD Primary Care Provider Encounter Details Date Type Department Care Team (Late Contact Info) Description 03/03/2023 Telephone [facility] - Centralized Scheduling [address] [place] [phone] Heather Scruggs MD [address] [place] [address] [address] DIV OF PULMONARY/[place] [address] Social History Tobacco Use Types Packs/Day Years Used Date Smoking Tobacco: Never Smokeless Tobacco: Never Alcohol Use Standard Drinks/Week Comments Yes 0 (1 standard drink = 0.6 oz pur e alcohol) socially Comments No Sex and Gender Information Value Date Recorded Sex Assigned at Not on file Legal Sex Female 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 LAYER Gender Identity Not on file Sexual Orientation Not on file documented as of this encounter Plan of Treatment Upcoming Encounters Date Type Department Care Team (Late Contact Info) Description 06/22/2025 8:30 AM CDT Office Visit [facility] - Pulmonology [address] [place] [address], [place] [phone] Heather Scruggs MD [address] [place] [address] [address] DIV OF PULMONARY/[place] [address] documented as of this encounter Visit Diagnoses Not on filedocumented in this encounter Care Teams Assistant Community Manager Relationship Specialty Start Date End Date Dani Juarez MD [address] [place], [place] [id number] PCP - General 01/20/18 documented as of this encounter
--- OUTSIDE RECORDS SUMMARY | 2025-03-26 10:12 | XMS_ITS | Clinical Summary ---
Author Organization [facility] Address [facility] [place] [address] Care Team Providers Care Personal Financial Advisor Name Role Phone Dani Juarez MD Primary Care Provider Allergies No known active allergies Medications aspirin 81 mg chewable tabletIndicati ons:Family history heart disease Take 81 mg by mouth nightly Active albuterol 2.5 mg /3 mL (0.083 %) nebulizer solutionIndica tions:Acute Asthma Attack Take 2.5 mg by nebulization every 4 (four) hours as needed 1 Active benralizumab (FASENRA PEN SUBQ)Indicatio ns:Asthma Inject [...] of nasal turbinates 05/18/2022 Chronic sinusitis 05/18/2022 Encounters Date Type Department Care Team Description 03/19/2025 9:20 AM CDT Office Visit [facility] ENT [address] [facility] 11th [place] [address] [place] [address] Wilfredo Mtz MD Multiple nasal polyps (Primary Dx); Chronic pansinusitis from Last 3 Months Surgical History Surgery Date Site/Laterality Comments SINUS SURGERY multiple BLADDER SUSPENSION with mesh PARTIAL HYSTERECTOMY TUBAL LIGATION Family History Medical History Relation Name Comments Anesthesia problems Neg Hx Social History Tobacco Use Types Packs/Day Years [...] on file Legal Sex Female 10:44 PM [employer] Gender Identity Not on file Sexual Orientation Not on file Obstetrics History Last Filed Vital Signs Vital Sign Reading Time Taken Comments Blood Pressure 154/98 07/07/2022 2:15 PM [employer] Pulse 76 07/07/2022 2:15 PM [employer] Temperature 36.3 C (97.3 F) 07/07/2022 12:30 PM [employer] Respiratory Rate 14 07/07/2022 2:15 PM [employer] Oxygen Saturation 93% 07/07/2022 2:15 PM [employer] Inhaled Oxygen Concentration - - Weight 99.8 kg (220 lb) 03/19/2025 8:42 AM CDT Height 165.1 cm (5' 5) 07/07/2022 9:40 AM [employer] Body Mass Index 36.61 07/07/2022 9:40 AM [employer] Plan of Treatment Health Maintenance Due Date Last Done Comments Colon Cancer Screening-Colonoscopy 1976 Depression Screening 1976 Hepatitis C Screening 1976 Regular Well Visit/Exam 18-64 1994 Pneumococcal vaccine <65 (1 of 2 - PCV) 1995 Breast Cancer Screening-Mammogram 02/27/2024 02/26/2023, 08/20/2021, 08/13/2021 Influenza Vaccine (#1) 2025 DTaP/Tdap/Td Vaccine (2 - Td or Tdap) 03/10/202707/2017 Hepatitis B Screening Completed 06/02/2018, 018 Insurance [facility] Care Teams Personal Financial Advisor Relationship Specialty Start Date End Date Dani Juarez MD [address] [place] [id number] PCP - General Internal Medicine 04/08/22
--- OUTSIDE RECORDS SUMMARY | 2025-03-26 10:12 | XMS_ITS | Data Portability ---
Author Organization [facility] Saray [facility] Address [address] [place] [address] Care Team Providers Care Commissioner Of Officials Name Role Phone DANI BANG Primary Care Provider CHRISTO YOUNG Waterproofing Supervisor Assessment Encounter Date Assessment Date Assessment LastModified by Organization Details LastModified Time 02/20/2025 02/20/2025 Her lower back pain with radicular symptoms are not any better, she has completed appropriate physical therapy treatment and at this point in time, imaging with a MRI is indicated to further evaluate her lower back. oajao Not available 02/20/2025 12:58:00 Plan of Treatment Reminders Order Date Submit Date Provider Last Modified By Organization Details Last Modified Time Details Appointments ANY 15 2024 11:45A M Dani Bang MD Not available Not available Not available Lab vitamin B12, serum 2023 024 [facility], [address] [place] [address], [address], [place], [address], 04/21/2024 06:21:15 TSH, ultra-sen sitive, serum 2023 024 [facility], [address] [place] [address], [address], [place], [address], 04/21/2024 06:21:16 urinalysi s, dipstick 2023 024 [facility], [address] [place] [address], [address], [place], [address], 12/15/2023 06:19:55 CBC w/ auto diff 2023 024 [facility], [address] [place] [address], [address], [place], [address], 12/14/2023 06:18:36 CMP, serum or plasma 2023 024 [facility], [address] [place] [address], [address], [place], [address], 12/14/2023 06:18:34 lipid panel, serum 2023 024 [facility], [address] [place] [address], [address], [place], [address], 12/14/2023 06:18:34 HbA1c (hemoglob in A1c), blood 2023 024 [facility], [address] [place] [address], [address], [place], [address], 12/14/2023 06:18:32 Referral physical therapist referral - [place] location 2023 024 [facility], [address] [place], [address], 09/26/2024 17:30:55 nutrition ist/dieti kelsi referral - Pre DM 2023 024 delroy Alston - Nuritionist, [address] [facility] [place], [address], 12/22/2024 18:51:44 orthopedi c surgeon referral - Instabili ty of the right knee 2023 024 ANNA Jean MD, [address] [facility], [place], [address], 06/07/2024 00:47:42 dermatolo gist referral - Please call patient for the appointme nt , thanks! 2023 delroy Kapoor MD ([facility], Dermatology), [address] [place], [address], 12/22/2024 18:51:44 Procedures None recorded. Surgeries None recorded. Imaging MRI, lumbar spine, w/o contrast [address] ([facility]), [address] [place], [address], 03/21/2025 10:05:32 XR, lumbosacr al spine - Back pain with LE numbness [address] [facility] ([facility]), [address] [place], [address], 05/16/2024 15:30:20 XR, knee, 3 view - R. knee instabili ty [address] [facility] ([facility]), [address] [place], [address], 05/16/2024 15:29:54 US, lower back - Left side of the lumbar area [address] [facility] ([facility]), [address] [place], [address], 04/25/2024 14:14:53 Medication Orders gabapenti n 300 mg capsule 2024 025 [id number], [address], [place], [id number], 02/20/2025 11:13:46 losartan 25 mg tablet 2024 025 [id number], [address], [place], [id number], 02/20/2025 11:15:47 losartan 25 mg tablet 2023 024 [id number], [address], [place], [id number], 08/24/2024 15:52:00 losartan 25 mg tablet 2023 024 [id number], [address], [place], [id number], 06/20/2024 12:21:42 amlodipin e 10 mg tablet 2023 [id number], [address], [place], [id number], 06/20/2024 12:19:12 amlodipin e 5 mg tablet 2023 [id number], [address], [place], [id number], 06/20/2024 12:19:16 Patient TargetsNo targets recorded. Patient Instructions Encounter Date Encounter Id Patient Instructions Last Modified By Organization Details Last Modified Time 12/02/2023 [id number] controlling your asthma: care instructions oajao Not available 12/02/2023 15:55:32 learning about asthma oajao Not available 12/02/2023 15:55:32 body mass index: care instructions oajao Not available 12/02/2023 15:59:21 learning about healthy weight oajao Not available 12/02/2023 15:59:21 CXR & ER report from [facility] Labs Restart Amlodipine Nebulizer MATERIAL HANDLING CREW SUPERVISOR follow up (Scheduled) Follow up in 4 weeks and PRN oajao Not available 12/02/2023 19:07:09 04/20/2024 [id number] prediabetes: car e instructions oajao Not available 04/20/2024 10:53:52 neuropathic pain : care instructions oajao Not available 04/20/2024 10:59:47 skin lesions: care instructions oajao Not available 04/20/2024 10:55:54 Stop Amlodipine 5 mg Xrays Labs Orthopedics Ec Teacher Dermatology Increase Amlodipine to 10 mg Follow up in 4 weeks oajao Not available 04/20/2024 11:03:41 Detailed visit oajao Not available 0 04/20/2024 16:49:38 06/20/2024 [id number] Stop Amlodipine (Hair loss) Start Losartan Dermatology as referred Follow up in 4 weeks oajao Not available 06/20/2024 12:24:03 08/24/2024 [id number] PT Follow up 7-8 weeks oajao Not available 08/24/2024 15:52:11 02/20/2025 [id number] A healthy lifestyle: care instructions oajao Not available 02/20/2025 10:58:13 body mass index: care instructions oajao Not available 02/20/2025 10:58:13 learning about healthy weight oajao Not available 02/20/2025 10:58:13 Reason for Referral Orthopedic Surgeon Referral for Instability of joint of right knee Instability of the right knee Instability of the right knee Referring Physician: Dani Bang, Internal Medicine, Encounter Date: 04/20/2024 Ec Teacher/dietitian Refer ral for Impaired fasting glycemia Pre DM Referring Physician: Dani Bang Internal Medicine, Encounter Date: 04/20/2024 Snow Shoveler Referral for I tching of lesion of skin Chronic skin lesions Please call patient for the appointment , thanks! Referring Physician: Dani Bang Internal Medicine, Encounter Date: 04/20/2024 Physical Therapist Referral for Lumbar radiculopathy Lumbar radiculopathy [place] location Referring Physician: Dani Bang Internal Medicine, Encounter Date: 08/24/2024 Results Created Date Observation Date Name Description Value Unit Range Abnormal Flag Note LastModifiedBy Organization Detail LastModifiedTime 12/13/19 24 12/14/2023 HEMOG LOBIN A1C hemoglobin A1C 5.8 % 4.8-5. 6 above high normal Predi abete s: 5.7 - 6.4 Diabe geena: >6.4 Glyce anna contr ol for adult s with diabe geena: <7.0 Not Available [facility] ([facility]) [address] [place], [address], 12/14/2023 06:18:32 12/13/19 24 12/14/2023 LIPID PANEL cholesterol, total 110 mg/dL 100-19 9 Not Available [facility] ([facility]) [address] [place], [address], 12/14/2023 06:18:34 12/13/19 24 12/14/2023 LIPID PANEL triglyceride s 58 mg/dL 0-149 Not Available [facility]) [address] [place], [address], 12/14/2023 06:18:34 12/13/19 24 12/14/2023 LIPID PANEL HDL cholesterol 48 mg/dL >39 Not Available [facility]) [address] [place], [address], 12/14/2023 06:18:34 12/13/19 24 12/14/2023 LIPID PANEL VLDL cholesterol ese 13 mg/dL 5-40 Not Available [facility] ([facility]) [address] [place], [address], 12/14/2023 06:18:34 12/13/19 24 12/14/2023 LIPID PANEL LDL chol calc ([facility]) 49 mg/dL 0-99 Not Available [facility]) [address] [place], [address], 12/14/2023 06:18:34 12/13/19 24 12/14/2023 COMP. METAB OLIC PANEL (14) glucose 94 mg/dL 70-99 Not Available [facility] ([facility]) [address] [place], [address], 12/14/2023 06:18:34 12/13/19 24 12/14/2023 COMP. METAB OLIC PANEL (14) BUN 9 mg/dL 6-24 Not Available [facility] ([facility]) [address] [facility] [place], [address], 12/14/2023 06:18:34 12/13/19 24 12/14/2023 COMP. METAB OLIC PANEL (14) creatinine 0.70 mg/dL 0.57-1 .00 Not Available [facility] ([facility]) [address] [facility] [place], [address], 12/14/2023 06:18:34 12/13/19 24 12/14/2023 COMP. METAB OLIC PANEL (14) eGFR 107 mL/mi n/1.7 3 >59 Not Available [facility] ([facility]) [address] [facility] [place], [address], 12/14/2023 06:18:34 12/13/19 24 12/14/2023 COMP. METAB OLIC PANEL (14) BUN/creatini ne ratio 13 9-23 Not Available [facility] ([facility]) [address] [facility] [place], [address], 12/14/2023 06:18:34 12/13/19 24 12/14/2023 COMP. METAB OLIC PANEL (14) sodium 144 mmol/ L 134-14 4 Not Available [facility] ([facility]) [address] [facility] [place], [address], 12/14/2023 06:18:34 12/13/19 24 12/14/2023 COMP. METAB OLIC PANEL (14) potassium 4.4 mmol/ L 3.5-5. 2 Not Available [facility] ([facility]) [address] [facility] [place], [address], 12/14/2023 06:18:34 12/13/19 24 12/14/2023 COMP. METAB OLIC PANEL (14) chloride 108 mmol/ L 96-106 above high normal Not Available [facility] ([facility]) [address] [place], [address], 12/14/2023 06:18:34 12/13/19 24 12/14/2023 COMP. METAB OLIC PANEL (14) carbon dioxide, total 21 mmol/ L 20-29 Not Available [facility] ([facility]) [address] [place], [address], 12/14/2023 06:18:34 12/13/19 24 12/14/2023 COMP. METAB OLIC PANEL (14) calcium 8.8 mg/dL 8.7-10 .2 Not Available [facility] ([facility]) [address] [place], [address], 12/14/2023 06:18:34 12/13/19 24 12/14/2023 COMP. METAB OLIC PANEL (14) protein, total 6.6 g/dL 6.0-8. 5 Not Available [facility] ([facility]) [address] [place], [address], 12/14/2023 06:18:34 12/13/19 24 12/14/2023 COMP. METAB OLIC PANEL (14) albumin 3.8 g/dL 3.9-4. 9 below low normal Not Available [facility] ([facility]) [address] [place], [address], 12/14/2023 06:18:34 12/13/19 24 12/14/2023 COMP. METAB OLIC PANEL (14) globulin, total 2.8 g/dL 1.5-4. 5 Not Available [facility] ([facility]) [address] [place], [address], 12/14/2023 06:18:34 12/13/19 24 12/14/2023 COMP. METAB OLIC PANEL (14) A/G ratio 1.4 1.2-2. 2 Not Available [facility] ([facility]) [address] [facility], [address], 12/14/2023 06:18:34 12/13/19 24 12/14/2023 COMP. METAB OLIC PANEL (14) bilirubin, total 0.6 mg/dL 0.0-1. 2 Not Available [facility] ([facility]) [address] [facility], [place], [address], 12/14/2023 06:18:34 12/13/19 24 12/14/2023 COMP. METAB OLIC PANEL (14) alkaline phosphatase 73 IU/L 44-121 Not Available [facility]) [address] [facility], [place], [address], 12/14/2023 06:18:34 12/13/19 24 12/14/2023 COMP. METAB OLIC PANEL (14) AST (SGOT) 17 IU/L 0-40 Not Available [facility] ([facility]) [address] [facility], [place], [address], 12/14/2023 06:18:34 12/13/19 24 12/14/2023 COMP. METAB OLIC PANEL (14) ALT (SGPT) 13 IU/L 0-32 Not Available [facility] ([facility]) [address] [facility], [place], [address], 12/14/2023 06:18:34 12/13/19 24 12/13/2023 UNABL E TO VOID unable to void COMMEN T Patie nt unabl e to void. Urine to be colle cted at a later date. Not Available [facility] ([facility]) [address] [facility], [place], [address], 12/14/2023 06:18:35 12/13/19 24 12/14/2023 CBC WITH DIFFE RENTI AL/PL ATELE T WBC 3.9 x10e3 /uL 3.4-10 .8 Not Available [facility] ([facility]) [address] [facility], [place], [address], 12/14/2023 06:18:36 12/13/19 24 12/14/2023 CBC WITH DIFFE RENTI AL/PL ATELE T RBC 4.67 x10e6 /uL 3.77-5 .28 Not Available [facility] ([facility]) [address] [facility], [place], [address], 12/14/2023 06:18:36 12/13/19 24 12/14/2023 CBC WITH DIFFE RENTI AL/PL ATELE T hemoglobin 12.8 g/dL 11.1-1 5.9 Not Available [facility] ([facility]) [address] [place], [address], 12/14/2023 06:18:36 12/13/19 24 12/14/2023 CBC WITH DIFFE RENTI AL/PL ATELE T hematocrit 40.8 % 34.0-4 6.6 Not Available [facility] ([facility]) [address] [place], [address], 12/14/2023 06:18:36 12/13/19 24 12/14/2023 CBC WITH DIFFE RENTI AL/PL ATELE T MCV 87 fL 79-97 Not Available [facility] ([facility]) [address] [place], [address], 12/14/2023 06:18:36 12/13/19 24 12/14/2023 CBC WITH DIFFE RENTI AL/PL ATELE T MCH 27.4 pg 26.6-3 3.0 Not Available [facility] ([facility]) [address] [place], [address], 12/14/2023 06:18:36 12/13/19 24 12/14/2023 CBC WITH DIFFE RENTI AL/PL ATELE T MCHC 31.4 g/dL 31.5-3 5.7 below low normal Not Available [facility] ([facility]) [address] [place], [address], 12/14/2023 06:18:36 12/13/19 24 12/14/2023 CBC WITH DIFFE RENTI AL/PL ATELE T RDW 14.2 % 11.7-1 5.4 Not Available [facility] ([facility]) [address] [facility], [place], [address], 12/14/2023 06:18:36 12/13/19 24 12/14/2023 CBC WITH DIFFE RENTI AL/PL ATELE T platelets 262 x10e3 /uL 150-45 0 Not Available [facility] ([facility]) [address] [facility], [place], [address], 12/14/2023 06:18:36 12/13/19 24 12/14/2023 CBC WITH DIFFE RENTI AL/PL ATELE T neutrophils 50 % notest ab. Not Available [facility] ([facility]) [address] [facility], [place], [address], 12/14/2023 06:18:36 12/13/19 24 12/14/2023 CBC WITH DIFFE RENTI AL/PL ATELE T lymphs 39 % notest ab. Not Available [facility] ([facility]) [address] [facility], [place], [address], 12/14/2023 06:18:36 12/13/19 24 12/14/2023 CBC WITH DIFFE RENTI AL/PL ATELE T monocytes 10 % notest ab. Not Available [facility] ([facility]) [address] [facility], [place], [address], 12/14/2023 06:18:36 12/13/19 24 12/14/2023 CBC WITH DIFFE RENTI AL/PL ATELE T eos 0 % notest ab. Not Available [facility] ([facility]) [address] [facility], [place], [address], 12/14/2023 06:18:36 12/13/19 24 12/14/2023 CBC WITH DIFFE RENTI AL/PL ATELE T basos 1 % notest ab. Not Available [facility] ([facility]) [address] [facility], [place], [address], 12/14/2023 06:18:36 12/13/19 24 12/14/2023 CBC WITH DIFFE RENTI AL/PL ATELE T neutrophils (absolute) 2.0 x10e3 /uL 1.4-7. 0 Not Available [facility] ([facility]) [address] [facility], [place], [address], 12/14/2023 06:18:36 12/13/19 24 12/14/2023 CBC WITH DIFFE RENTI AL/PL ATELE T lymphs (absolute) 1.5 x10e3 /uL 0.7-3. 1 Not Available [facility] ([facility]) [address] [place], [address], 12/14/2023 06:18:36 12/13/19 24 12/14/2023 CBC WITH DIFFE RENTI AL/PL ATELE T monocytes(ab solute) 0.4 x10e3 /uL 0.1-0. 9 Not Available [facility] ([facility]) [address] [place], [address], 12/14/2023 06:18:36 12/13/19 24 12/14/2023 CBC WITH DIFFE RENTI AL/PL ATELE T eos (absolute) 0.0 x10e3 /uL 0.0-0. 4 Not Available [facility] ([facility]) [address] [place], [address], 12/14/2023 06:18:36 12/13/19 24 12/14/2023 CBC WITH DIFFE RENTI AL/PL ATELE T baso (absolute) 0.0 x10e3 /uL 0.0-0. 2 Not Available [facility] ([facility]) [address] [place], [address], 12/14/2023 06:18:36 12/13/19 24 12/14/2023 CBC WITH DIFFE RENTI AL/PL ATELE T immature granulocytes 0 % notest ab. Not Available [facility] ([facility]) [address] [facility], [place], [address], 12/14/2023 06:18:36 12/13/19 24 12/14/2023 CBC WITH DIFFE RENTI AL/PL ATELE T immature grans (abs) 0.0 x10e3 /uL 0.0-0. 1 Not Available [facility] ([facility]) [address] [place], [address], 12/14/2023 06:18:36 12/14/19 24 12/15/2023 URINA LYSIS , ROUTI NE specific gravity 1.017 1.005- 1.030 Not Available [facility] ([facility]) [address] [place], [address], 12/15/2023 06:19:55 12/14/19 24 12/15/2023 URINA LYSIS , ROUTI NE pH 6.0 5.0-7. 5 Not Available [facility] ([facility]) [address] [place], [address], 12/15/2023 06:19:55 12/14/19 24 12/15/2023 URINA LYSIS , ROUTI NE urine-color YELLOW yellow Not Available [facility]) [address] [place], [address], 12/15/2023 06:19:55 12/14/1912/15/2023 URINA LYSIS , ROUTI NE appearance CLEAR clear Not Available [facility] ([facility]) [address] [place], [address], 12/15/2023 06:19:55 12/14/19 24 12/15/2023 URINA LYSIS , ROUTI NE WBC esterase NEGATI VE negati ve Not Available [facility] ([facility]) [address] [facility], [place], [address], 12/15/2023 06:19:55 12/14/19 24 12/15/2023 URINA LYSIS , ROUTI NE protein NEGATI VE negati ve/tra ce Not Available [facility] ([facility]) [address] [facility], [place], [address], 12/15/2023 06:19:55 12/14/19 24 12/15/2023 URINA LYSIS , ROUTI NE glucose NEGATI VE negati ve Not Available [facility] ([facility]) [address] [place], [address], 12/15/2023 06:19:55 12/14/19 24 12/15/2023 URINA LYSIS , ROUTI NE ketones NEGATI VE negati ve Not Available [facility] ([facility]) [address] [place], [address], 12/15/2023 06:19:55 12/14/19 24 12/15/2023 URINA LYSIS , ROUTI NE occult blood NEGATI VE negati ve Not Available [facility] ([facility]) [address] [facility], [place], [address], 12/15/2023 06:19:55 12/14/19 24 12/15/2023 URINA LYSIS , ROUTI NE bilirubin NEGATI VE negati ve Not Available [facility] ([facility]) [address] [place], [address], 12/15/2023 06:19:55 12/14/19 24 12/15/2023 URINA LYSIS , ROUTI NE urobilinogen ,semi-qn 0.2 mg/dL 0.2-1. 0 Not Available [facility] ([facility]) [address] [place], [address], 12/15/2023 06:19:55 12/14/19 24 12/15/2023 URINA LYSIS , ROUTI NE nitrite, urine NEGATI VE negati ve Not Available [facility] ([facility]) [address] [facility], [place], [address], 12/15/2023 06:19:55 12/14/19 24 12/15/2023 URINA LYSIS , ROUTI NE microscopic examination COMMEN T Micro scopi c not indic ated and not perfo rmed. Not Available [facility] ([facility]) [address] [facility], [place], [address], 12/15/2023 06:19:55 04/20/20 24 04/21/2024 VITAM IN B12 vitamin B12 491 pg/mL 232-12 45 Not Available [facility] ([facility]) [address] [facility], [place], [address], 04/21/2024 06:21:15 04/20/20 24 04/21/2024 TSH TSH 0.899 uIU/m L 0.450- 4.500 Not Available [facility] ([facility]) [address] [facility], [place], [address], 04/21/2024 06:21:16 10/07/19 25 10/07/2024 Influ willy virus A and B and SARS- CoV-2 (COVI D-19) and SARS- relat ed CoV RNA panel - Respi rator y syste m speci men by JANEE with probe detec tion sars-cov-2 (covid-19) RNA [presence] in specimen by JANEE with probe detection NEGATI VE normal Not Available Not Available 18:25:40 10/07/19 25 10/07/2024 Influ willy virus A and B and SARS- CoV-2 (COVI D-19) and SARS- relat ed CoV RNA panel - Respi rator y syste m speci men by JANEE with probe detec tion influenza virus A RNA [presence] in respiratory system specimen by JANEE with probe detection POSITI VE Not Available Not Available 18:25:40 10/07/19 25 10/07/2024 Influ willy virus A and B and SARS- CoV-2 (COVI D-19) and SARS- relat ed CoV RNA panel - Respi rator y syste m speci men by JANEE with probe detec tion influenza virus B RNA [presence] in respiratory system specimen by JANEE with probe detection NEGATI VE normal Not Available Not Available 18:25:40 02/17/20 25 02/16/2025 CBC W Auto Diffe renti al panel - Blood leukocytes [#/volume] in blood by automated count 5.1 text: 4.0 - 10.7 x10e9/ L Not Available Not Available 02/19/2025 16:16:42 02/17/20 25 02/16/2025 CBC W Auto Diffe renti al panel - Blood erythrocytes [#/volume] in blood by automated count 4.79 text: 3.90 - 5.20 x10e12 /L Not Available Not Available 02/19/2025 16:16:42 02/17/20 25 02/16/2025 CBC W Auto Diffe renti al panel - Blood hemoglobin [mass/volume ] in blood 13.2 g/dL low: 11.9g/ dLhigh : 15.8g/ dL Not Available Not Available 02/19/2025 16:16:42 02/17/20 25 02/16/2025 CBC W Auto Diffe renti al panel - Blood hematocrit [volume fraction] of blood by automated count 41.2 % low: 34.8%h igh: 46.1% Not Available Not Available 02/19/2025 16:16:42 02/17/20 25 02/16/2025 CBC W Auto Diffe renti al panel - Blood MCV [entitic mean volume] in red blood cells by automated count 86 fL low: 80fLhi gh: 98fL Not Available Not Available 02/19/2025 16:16:42 02/17/20 25 02/16/2025 CBC W Auto Diffe renti al panel - Blood MCH [entitic mass] by automated count 27.6 pg low: 26.7pg high: 33.6pg Not Available Not Available 02/19/2025 16:16:42 02/17/20 25 02/16/2025 CBC W Auto Diffe renti al panel - Blood MCHC [entitic mass/volume] in red blood cells by automated count 32 g/dL low: 31.7g/ dLhigh : 36.3g/ dL Not Available Not Available 02/19/2025 16:16:42 02/17/20 25 02/16/2025 CBC W Auto Diffe renti al panel - Blood erythrocyte [distwidth] in red blood cells by automated count 14 % low: 11.3%h igh: 14.8% Not Available Not Available 02/19/2025 16:16:42 02/17/20 25 02/16/2025 CBC W Auto Diffe renti al panel - Blood platelets [#/volume] in blood by automated count 282 text: 150 - 420 x10e9/ L Not Available Not Available 02/19/2025 16:16:42 02/17/20 25 02/16/2025 CBC W Auto Diffe renti al panel - Blood platelet [entitic mean volume] in blood by automated count 10 fL low: 7.8fLh igh: 11.4fL Not Available Not Available 02/19/2025 16:16:42 02/17/20 25 02/16/2025 CBC W Auto Diffe renti al panel - Blood neutrophils/ leukocytes in blood by automated count 43.3 % low: 41%hig h: 74% Not Available Not Available 02/19/2025 16:16:42 02/17/20 25 02/16/2025 CBC W Auto Diffe renti al panel - Blood lymphocytes/ leukocytes in blood by automated count 41.1 % low: 17%hig h: 47% Not Available Not Available 02/19/2025 16:16:42 02/17/20 25 02/16/2025 CBC W Auto Diffe renti al panel - Blood monocytes/le ukocytes in blood by automated count 7.7 % low: 3%high : 11% Not Available Not Available 02/19/2025 16:16:42 02/17/20 25 02/16/2025 CBC W Auto Diffe renti al panel - Blood eosinophils/ leukocytes in blood by automated count 6.7 % low: 0%high : 7% Not Available Not Available 02/19/2025 16:16:42 02/17/20 25 02/16/2025 CBC W Auto Diffe renti al panel - Blood basophils/le ukocytes in blood by automated count 1 % low: 0%high : 1.6% Not Available Not Available 02/19/2025 16:16:42 02/17/20 25 02/16/2025 CBC W Auto Diffe renti al panel - Blood immature granulocytes /leukocytes in blood by automated count 0.2 % low: 0%high : 1% Not Available Not Available 02/19/2025 16:16:42 02/17/20 25 02/16/2025 CBC W Auto Diffe renti al panel - Blood neutrophils [#/volume] in blood by automated count 2.19 text: 1.60 - 7.50 x10e9/ L Not Available Not Available 02/19/2025 16:16:42 02/17/20 25 02/16/2025 CBC W Auto Diffe renti al panel - Blood lymphocytes [#/volume] in blood by automated count 2.08 text: 1.00 - 4.40 x10e9/ L Not Available Not Available 02/19/2025 16:16:42 02/17/20 25 02/16/2025 CBC W Auto Diffe renti al panel - Blood monocytes [#/volume] in blood by automated count 0.39 text: 0.15 - 1.00 x10e9/ L Not Available Not Available 02/19/2025 16:16:42 02/17/20 25 02/16/2025 CBC W Auto Diffe renti al panel - Blood eosinophils [#/volume] in blood 0.34 text: 0.00 - 0.60 x10e9/ L Not Available Not Available 02/19/2025 16:16:42 02/17/20 25 02/16/2025 CBC W Auto Diffe renti al panel - Blood basophils [#/volume] in blood by automated count 0.05 text: 0.00 - 0.13 x10e9/ L Not Available Not Available 02/19/2025 16:16:42 02/17/20 25 02/16/2025 CBC W Auto Diffe renti al panel - Blood interpretati on and review of laboratory results NORMAL Not Available Not Available 01/29 16:16:42 04/25/20 24 04/25/2024 US, lower back No observ ation record ed. [facility] [address] [place], [address], 06/20/2024 12:16:02 05/16/20 24 05/16/2024 XR, knee, 3 view No observ ation record ed. [facility] [address] [place], [address], 06/20/2024 12:16:01 05/16/20 24 05/16/2024 XR, lumbo sacra l spine No observ ation record ed. [facility] [address] [place], [address], 06/20/2024 12:16:01 Result Notes None recorded. Problems Name Problem SNOMED Code Status Onset Date Resolution Date Notes Provider Name and Address Organization Details Recorded Time Localized eruption of skin 817057773 Active Not Available [facility] 3 04:39:13 Otalgia of right ear 6351458701 Active Not Available [facility] 3 04:39:12 Cellulitis of right upper limb 1143141638122 9107 Active Not Available [facility] 3 04:39:12 Orthostati c headache 614177375 Active Not Available [facility] 3 04:39:13 Effusion of joint of left knee 8409109602585 05 Active Not Available [facility] 3 04:39:13 Acute sinusitis 34319723 Active Dani Bang MD Attn: Accounting ,[address] [place], [address] , [place] [facility] 4 10:37:23 Acute asthma 894906958 Active Dani Bang MD Attn: Accounting ,[address] [facility], [place], [address] , [place] [facility] 4 10:37:23 Asthma 998486279 Active 2010 Not Available [facility] 3 04:39:13 Benign essential hypertensi on 8451846 Active 2017 Not Available [facility] 3 04:39:13 Impaired fasting glycemia 764131085 Active 2017 Not Available [facility] 3 04:39:13 Immunizati on refused Active 2017 Not Available [facility] 3 04:39:13 History and physical examinatio n, pre-employ ment Active 2017 Not Available [facility] 3 04:39:12 Intermitte nt palpitatio ns 226541594 Active 2020 Not Available [facility] 3 04:39:12 Essential hypertensi on 33242471 Active 2020 Not Available [facility] 3 04:39:13 Family history of cancer of colon 348133732 Active 2020 Not Available [facility] 3 04:39:13 Family history of aneurysm of blood vessel of brain 9273042539819 9103 Active 2020 Not Available [facility] 3 04:39:12 Influenza vaccinatio n declined 093643571 Active 2021 Not Available [facility] 3 04:39:13 Inguinal lymphadeno ananth 539344711 Active 2021 Not Available [facility] 3 04:39:13 Lumbar radiculopa thy 127378194 Active 2024 Dani Bang MD Attn: [place], [address] , [facility] 5 12:55:54 Notes:Some problems listed i n Documents: #[id number], #[id number] could not be added to this patient's chart. Please review these documents and add these problems to the patient's chart manually as needed. 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 Patient : 1975. Patient . Dani Bang MD Attn: Sincere,[address] [place], [address], [place] [facility] 04/20/2024 10:39:21 Procedures Surgical History Date Name Laterality Status Provider Name and Address Organization Details Recorded Time 2022 esophagogastroduodenoscopy completed Marva Dawson MD Attn: Brent moe,[address] [place], [address], [place] [facility] 3 08:23:03 2022 Colonoscopy completed Dani Bang MD Attn: Brent moe,[address] [place], [address], [place] [facility] 3 13:46:30 2020 SUBMUCOUS RESECTION INFERIOR TURBINATE (SURG) completed Michael Mccarthy MD [address] [place], [address], [place] [facility] 1 10:40:38 2020 SUBMUCOUS RESECTION INFERIOR TURBINATE (SURG) completed Dani Bang MD Attn: Brent moe,[address] [place], [address], [place] [facility] 1 09:29:53 2018 ligation of fallopian tube completed Marva Dawson MD Attn: Brent moe,[address] [place], [address], [place] [facility] 1 09:59:36 Partial hysterectomy completed Kizzy Rodgers [place] [facility] 7 14:33:07 Removal of thyroid completed Milton Rodgers [place] [facility] 7 14:33:52 Cholecystectomy completed Dani Bang MD Attn: Brent payal,[address] [place], [address], [place] [facility] 7 14:52:22 Nsl/sins ndsc frnt t iss rmvl completed Dani Bang MD Attn: Brent moe,[address] [facility], [place], [address], [place] [facility] 7 14:52:31 Breast Surgery completed Dani Bang MD Attn: Brent payal,[address] [facility], [place], [address], [place] [facility] 7 14:52:46 Colpopexy extraperitoneal completed Dani Bang MD Attn: Constantinocrescencio moe,[address] [facility], [place], [address], [place] [facility] 9 15:31:27 Imaging Results None recorded. Procedure Notes None recorded. Medical Equipment None Reported. Allergies Allergen ID Allergen Name Allergen Category Reaction Reaction Severity Criticality Documentation Date Start Date Code Code System Note Provider Name and Address Organization Details Recorded Time 254886 No known allergy (situatio n) Not available Not available Not available Not available 07/02/2022 92625 6003 SNOMED Dani Bang MD Attn: Brent moe,[address] [facility], [place], [address], [place] [facility] 2 13:37:58 No known drug allergies Medications Name Sig Start Date Stop Date Status Note LastModified by Organization Details LastModified Time budesonide 0.6mg/ml conc ADD 1ML (SQUEEZE 0.5ML TWICE=1M L DOSE) OF MEDICATI ON TO 250ML OF SALINE IN SALINE IRRIGATI ON BOTTLE; IRRIGATE SINUSES WITH 120ML THROUGH EACH NOSTRIL TWICE DAILY active Not Available Not Available No t Available Prescripti on - Prior Authorizat ion Request 05/14 completed Not Available Not Available Not Available budesonide 0.6mg/ml falk ADD 1ML OF MEDICATI ON TO 250ML OF SALINE IN SALINE IRRIGATI ON BOTTLE; IRRIGATE SINUSES WITH 120ML THROUGH EACH NOSTRIL TWICE DAILY 10/20 completed Not Available Not Available Not Available celecoxib 200 mg capsule TAKE 1 CAPSULE BY MOUTH EVERY DAY active Not Available Not Available No t Available amoxicilli n 500 mg capsule TAKE 1 CAPSULE BY MOUTH THREE TIMES DAILY UNTIL ALL TAKEN 04/06 completed Not Available Not Available Not Available medroxypro gesterone 10 mg tablet 04/23 completed Not Available Not Available Not Available albuterol sulfate 0.63 mg/3 mL solution for nebulizati on Inhale 3 mL by inhalati on route as directed for 1 day. 10/27 completed Not Available Not Available Not Available prednisone 10 mg tablet 08/24 completed Not Available Not Available Not Available doxycyclin e hyclate 100 mg capsule TAKE 1 CAPSULE BY MOUTH TWICE DAILY AFTER MEALS FOR 10 DAYS 04/06 completed Not Available Not Available Not Available cefuroxime axetil 250 mg tablet TAKE 1 TABLET BY MOUTH TWICE DAILY 02/25 completed Not Available Not Available Not Available ipratropiu m 0.5 mg-albuter ol 3 mg (2.5 mg base)/3 mL nebulizati on soln 08/20 completed Not Available Not Available Not Available albuterol sulfate 2.5 mg/3 mL (0.083 %) solution for nebulizati on NEBULIZE AND INHALE 1 VIAL BY MOUTH EVERY 4 HOURS NEEDED FOR SHORTNES S OF BREATH active Not Available Not Available No t Available azithromyc in 250 mg tablet TAKE 2 TABLETS (500 MG) BY ORAL ROUTE ONCE DAILY FOR 1 DAY THEN 1 TABLET (250 MG) BY ORAL ROUTE ONCE DAILY FOR 4 DAYS 11/24 completed Not Available Not Available Not Available ibuprofen 800 mg tablet 08/11 completed Not Available Not Available Not Available alprazolam 1 mg tablet 05/14 completed Not Available Not Available Not Available fluconazol e 150 mg tablet TAKE 1 TABLET BY MOUTH EVERY 72 HOURS 12/01 completed Not Available Not Available Not Available hydrocodon e 5 mg-acetami nophen 325 mg tablet TAKE 1 TABLET BY MOUTH EVERY 4 HOURS NEEDED FOR PAIN 10/20 completed Not Available Not Available Not Available Claritin 10 mg tablet 08/20 completed Not Available Not Available Not Available fluconazol e 200 mg tablet TAKE 1 TABLET BY MOUTH DAILY 02/20 completed Not Available Not Available Not Available meloxicam 15 mg tablet TAKE 1 TABLET BY MOUTH DAILY 02/20 completed Not Available Not Available Not Available metronidaz ole 0.75 % (37.5 mg/5 gram) vaginal gel INSERT 1 APPLICAT ORFUL VAGINALL Y DAILY AT BEDTIME FOR 5 DAYS 12/01 completed Not Available Not Available Not Available prednisone 20 mg tablet TAKE 1 TABLET BY MOUTH DAILY active Not Available Not Available No t Available Tubersol 5 tub. unit/0.1 mL intraderma l injection solution Inject 0.1 mL by intrader mal route as directed for 1 day. 08/11 completed Not Available Not Available Not Available medroxypro gesterone 5 mg tablet TAKE 1 TABLET BY MOUTH EVERY DAY 11/24 completed Not Available Not Available Not Available prednisone 5 mg tablet 12/05 completed Not Available Not Available Not Available clindamyci n HCl 150 mg capsule 04/06 completed Not Available Not Available Not Available metronidaz ole 500 mg tablet TAKE 1 TABLET BY MOUTH THREE TIMES DAILY 04/23 completed Not Available Not Available Not Available acetaminop hen 300 mg-codeine 30 mg tablet TAKE 1 TABLET BY MOUTH EVERY 6 HOURS NEEDED FOR PAIN 07/29 completed Not Available Not Available Not Available chlorthali done 25 mg tablet Take 1 tablet every day by oral route for 90 days. 09/30 completed Not Available Not Available Not Available amlodipine 5 mg tablet TAKE 1 TABLET BY MOUTH EVERY DAY DIRECTED FOR HIGH BLOOD PRESSURE 06/20 completed Hair loss Not Available Not Available Not Available sulfametho xazole 800 mg-trimeth oprim 160 mg tablet TAKE 1 TABLET BY MOUTH TWICE DAILY 07/02 completed Not Available Not Available Not Available hydrocodon e 10 mg-acetami nophen 325 mg tablet 05/14 completed Not Available Not Available Not Available tramadol 50 mg tablet TAKE 1 TABLET BY MOUTH EVERY 8 HOURS NEEDED 07/02 completed Not Available Not Available Not Available acetaminop hen 500 mg tablet 07/29 completed Not Available Not Available Not Available triamcinol one acetonide 0.1 % topical cream 09/07 completed Not Available Not Available Not Available ketorolac 30 mg/mL (1 mL) injection solution 30 mg by injectio n route. 07/11 completed Not Available Not Available Not Available ketorolac 10 mg tablet TAKE 1 TABLET BY MOUTH FOUR TIMES DAILY FOR 4 DAYS NEEDED 09/07 completed Not Available Not Available Not Available Kenalog 40 mg/mL suspension for injection Take 1 mL by injectio n route. 07/29 completed Not Available Not Available Not Available prednisone 10 mg tablets in a dose pack Take 1 dose pk by oral route. 11/24 completed Not Available Not Available Not Available meloxicam 7.5 mg tablet TAKE 1 TABLET BY MOUTH EVERY DAY NEEDED 07/29 completed Not Available Not Available Not Available oxycodone- acetaminop hen 5 mg-325 mg tablet TAKE 1 TABLET BY MOUTH EVERY 6 HOURS NEEDED FOR PAIN OR ACUTE PAIN 12/01 completed Not Available Not Available Not Available oxycodone- acetaminop hen 10 mg-325 mg tablet 05/14 completed Not Available Not Available Not Available amlodipine 10 mg tablet TAKE 1 TABLET BY MOUTH EVERY DAY DIRECTED FOR HYPERTEN MYNOR 06/20 completed Hair loss Not Available Not Available Not Available doxycyclin e monohydrat e 100 mg capsule 12/10 completed Not Available Not Available Not Available cephalexin 500 mg capsule Take 1 capsule every 6 hours by oral route as directed for 7 days. 10/27 completed Not Available Not Available Not Available triamcinol one acetonide 0.1 % topical ointment apply to affected area BID x 2 weeks, stop x 2 weeks. Repeat as needed for flares. 05/14 completed Not Available Not Available Not Available polymyxin B sulfate 10,000 unit-trime thoprim 1 mg/mL eye drops INSTILL 1 DROP IN RIGHT EYE EVERY 3 HOURS WHILE AWAKE FOR 7 DAYS 08/04 completed Not Available Not Available Not Available losartan 25 mg tablet TAKE 1 TABLET BY MOUTH DAILY active Not Available Not Available No t Available progestero ne micronized 200 mg capsule TAKE 1 CAPSULE BY MOUTH EVERY DAY AT BEDTIME 12/01 completed Not Available Not Available Not Available hydrochlor othiazide 12.5 mg capsule TAKE 1 CAPSULE BY MOUTH EVERY DAY AROUND THE CLOCK 04/23 completed Nausea Not Available Not Available Not Available gabapentin 300 mg capsule TAKE 1 CAPSULE BY MOUTH THREE TIMES DAILY DIRECTED active Not Available Not Available No t Available buspirone 7.5 mg tablet Take 1 tablet twice a day by oral route as needed for 30 days. 06/20 completed Not Available Not Available Not Available omeprazole 20 mg capsule,de layed release TAKE 1 CAPSULE BY MOUTH EVERY DAY 12/01 completed Not Available Not Available Not Available Banophen 25 mg capsule TAKE 1 TABLET BY MOUTH EVERY 6 TO 8 HOURS NEEDED 07/29 completed Not Available Not Available Not Available aspirin 81 mg chewable tablet CHEW AND SWALLOW ONE TABLET ONCE DAILY 12/01 completed Not Available Not Available Not Available diclofenac sodium 75 mg tablet,del ayed release TAKE 1 TABLET BY MOUTH TWICE DAILY NEEDED 12/01 completed Not Available Not Available Not Available montelukas t 10 mg tablet TAKE 1 TABLET BY MOUTH DAILY active Not Available Not Available No t Available hydroxyzin e HCl 25 mg tablet 25 mg 3 times a day by oral route. 01/17 completed Not Available Not Available Not Available prednisone 5 mg tablets in a dose pack Take 1 dose pk by oral route. 04/23 completed Not Available Not Available Not Available ibuprofen 600 mg tablet TAKE 1 TABLET BY MOUTH EVERY 6 HOURS NEEDED 07/29 completed Not Available Not Available Not Available polyethyle ne glycol 3350 17 gram/dose oral powder MIX WITH 64OZ OF GATORADE . STARTING AT 5PM THE NIGHT BEFORE DRINK 8OZ EVERY 15 UNTIL GONE. DRINK 4 GLASSES OF WATER AFTERWAR DS 10/20 completed Not Available Not Available Not Available levofloxac in 500 mg tablet 05/14 completed Not Available Not Available Not Available oxycodone- acetaminop hen 7.5 mg-325 mg tablet TAKE 1 TABLET BY MOUTH EVERY 4 TO 6 HOURS NEEDED 04/23 completed Not Available Not Available Not Available estradiol 0.01% (0.1 mg/gram) vaginal cream USE 1 GRAM VAGINALL Y 3 TIMES A WEEK active Not Available Not Available No t Available methylpred nisolone 4 mg tablets in a dose pack FOLLOW PACKAGE DIRECTIO NS 04/06 completed Not Available Not Available Not Available albuterol sulfate HFA 90 mcg/actuat ion aerosol inhaler INHALE 2 PUFFS BY MOUTH EVERY 4 HOURS NEEDED FOR WHEEZING active Not Available Not Available No t Available ketorolac 60 mg/2 mL intramuscu lar solution Inject 2 mL every day by intramus cular route around the clock for 1 day. 09/07 completed Not Available Not Available Not Available oxybutynin chloride 5 mg tablet 06/20 completed Not Available Not Available Not Available ondansetro n 4 mg disintegra ting tablet TAKE 1 TABLET BY MOUTH EVERY 4 HOURS NEEDED FOR NAUSEA 12/01 completed Not Available Not Available Not Available cefdinir 300 mg capsule TAKE 1 CAPSULE BY MOUTH EVERY 12 HOURS 12/15 completed Not Available Not Available Not Available fluticason e propionate 50 mcg/actuat ion nasal spray,susp ension SHAKE LIQUID AND USE 2 SPRAYS IN EACH NOSTRIL TWICE DAILY 09/07 completed Not Available Not Available Not Available naproxen 500 mg tablet TAKE 1 TABLET BY MOUTH TWICE DAILY WITH FOOD 07/02 completed Not Available Not Available Not Available amoxicilli n 875 mg-potassi um clavulanat e 125 mg tablet TAKE 1 TABLET BY MOUTH TWICE DAILY 08/24 completed Not Available Not Available Not Available Dulcolax (bisacodyl ) 5 mg tablet,del ayed release At 2:00 PM the day before the colonosc opy, take all 4 tablets of Dulcolax by mouth at one time with 8 ounces of water 10/20 completed Not Available Not Available Not Available escitalopr am 10 mg tablet TAKE 1 TABLET BY MOUTH EVERY DAY DIRECTED 04/23 completed Not Available Not Available Not Available Laxative (bisacodyl ) 5 mg tablet AT 2PM THE DAY BEFORE PREP TAKE 4 TABLETS BY MOUTH WITH 8 OZ OF WATER 10/20 completed Not Available Not Available Not Available Premarin 0.625 mg/gram vaginal cream 09/07 completed Not Available Not Available Not Available lactulose 10 gram/15 mL oral solution 05/14 completed Not Available Not Available Not Available Symbicort 160 mcg-4.5 mcg/actuat ion HFA aerosol inhaler INHALE 1 PUFF BY MOUTH TWICE DAILY active Not Available Not Available No t Available Symbicort 80 mcg-4.5 mcg/actuat ion HFA aerosol inhaler Inhale 2 puffs twice a day by inhalati on route as directed for 30 days. 12/10 completed Not Available Not Available Not Available triamcinol one acetonide 0.1 %-emollien t comb.no.45 topical cream Apply 3 times a day by topical route. 09/07 completed Not Available Not Available Not Available Allergy Relief (fexofenad ine) 180 mg tablet TAKE 1 TABLET BY MOUTH EVERY DAY NEEDED 07/29 completed Not Available Not Available Not Available Aerospan 80 mcg/actuat ion HFA aerosol inhaler Inhale 2 puffs twice a day by inhalati on route. 08/20 completed Not Available Not Available Not Available Virtussin AC 10 mg-100 mg/5 mL oral liquid 08/20 completed Not Available Not Available Not Available Incruse Ellipta 62.5 mcg/actuat ion powder for inhalation 07/29 completed Not Available Not Available Not Available Spiriva Respimat 1.25 mcg/actuat ion solution for inhalation Inhale 2 puffs every day by inhalati on route for 30 days. 08/11 completed Not Available Not Available Not Available Aspercreme (lidocaine HCl) 4 % topical Apply 1 applicat ion 4 times a day by topical route as needed for 30 days. 07/29 completed Not Available Not Available Not Available fluticason e 232 mcg-salmet jeramie 14 mcg/actuat ion breath activated powdr Inhale 1 puff twice a day by inhalati on route for 30 days. 08/11 completed Not Available Not Available Not Available Qvar RediHaler 80 mcg/actuat ion HFA breath activated aerosol 08/11 completed Not Available Not Available Not Available Fasenra 30 mg/mL subcutaneo us syringe Inject 1 mL every 2 months by subcutan eous route. 05/14 completed Not Available Not Available Not Available Fasenra Every 8 weeks 04/20 completed Not Available Not Available Not Available Wixela Inhub 250 mcg-50 mcg/dose powder for inhalation INHALE 1 PUFF BY MOUTH TWICE DAILY 05/27 completed Not Available Not Available Not Available Vazalore 81 mg capsule Take 1 capsule by oral route. 09/07 completed Not Available Not Available Not Available Vitals Date Recorded Body weight Body temperature Oxygen saturation Oxygen saturation in Arterial blood by Pulse oximetry Heart rate Systolic And Diastolic Provider Name and Address Organization Details Last Updated DateTime 4 42147.1 7 g 98.4 [degF] 97 % 97 % 73 /min 134/80 mm[Hg] Uzma Han MA [facility] 4 15:21:25 Date Recorded Body height Body mass index (BMI) Body weight Oxygen saturation Oxygen saturation in Arterial blood by Pulse oximetry Heart rate Respiratory rate Body temperature Systolic And Diastolic Provider Name and Address Organization Details Last Updated DateTime 5 165.1 cm 33.8 kg/m2 44496.3 3 g 98 % 98 % 87 /min 18 /min 98.7 [degF] 144/100 mm[Hg] Ewa Roberto MA [facility] 5 10:48:55 Date Recorded Systolic And Diastolic Provider Name and Address Organization Details Last Updated DateTime 04/20/2024 140/90 mm[Hg] Dani Bang MD Attn: Accounting,[address] [place], [address], [facility] 04/20/2024 16:41:04 Date Recorded Body height Body mass index (BMI) Body weight Heart rate Oxygen saturation Oxygen saturation in Arterial blood by Pulse oximetry Respiratory rate Systolic And Diastolic Provider Name and Address Organization Details Last Updated DateTime 4 165.1 cm 34.9 kg/m2 51734.4 g 68 /min 97 % 97 % 16 /min 140/94 mm[Hg] Luli Rodgers MA [facility] 4 10:29:15 Date Recorded Body height Body mass index (BMI) Body weight Oxygen saturation Oxygen saturation in Arterial blood by Pulse oximetry Heart rate Respiratory rate Systolic And Diastolic Provider Name and Address Organization Details Last Updated DateTime 4 165.1 cm 33.9 kg/m2 57734.0 5 g 98 % 98 % 76 /min 18 /min 134/90 mm[Hg] Luli Rodgers MA [facility] 4 11:57:17 Date Recorded Body height Body mass index (BMI) Body weight Heart rate Oxygen saturation Oxygen saturation in Arterial blood by Pulse oximetry Body temperature Systolic And Diastolic Provider Name and Address Organization Details Last Updated DateTime 4 165.1 cm 34.1 kg/m2 57145.4 4 g 69 /min 99 % 99 % 98.1 [degF] 126/84 mm[Hg] Irasema VazquezBRITTANIE [place] - [facility] 4 15:27:16 Social History Question Answer Notes LastModified by Organizat ion Details LastModified Time Tobacco Smoking Status Never Smoker Luli Danielsonver [place] - [facility] 03/10/2017 14:32:39 Do You Have An Advance Directive? No Information n ot available 12/05/2020 Are You Blind Or Do You Have Difficulty Seeing? No Information n ot available 10/31/2020 What Is Your Level Of Caffeine Consumption? None Information not available 12/30/2017 In The 14 Days Before Symptom Onset, Have You Had Close Contact With A Laboratory-confirm ed COVID-19 While That Case Was Ill? No Information n ot available 12/05/2020 In The 14 Days Before Symptom Onset, Have You Had Close Contact With A Person Who Is Under Investigation For COVID-19 While That Person Was Ill? No Information not available 12/05/2020 Have You Been To An Area Known To Be High Risk For COVID-19? No [email or web address] Information not available 12/15/2021 Are You Deaf Or Do You Have Serious Difficulty Hearing? No Information not available 10/31/2020 What Type Of Diet Are You Following? REGULAR Information n ot available 12/30/2017 Which Illicit Or Recreational Drugs Have You Used? None Information not available 12/30/2017 Frequent Air Travel No Information not available 12/30/2017 Are There Any Guns Present In Your Home? No Information not available 12/05/2020 Live Alone Or With Others? With Others Information not available 12/30/2017 Do You Have A Medical Power Of Opal Miner? No Information not available 09/07/2022 What Was The Date Of Your Most Recent Tobacco Screening? 02/20/2025 Information not available 02/20/2025 Do You Use Your Seat Belt Or Car Seat Routinely? Yes Information not available 10/31/2020 Do You Have Smoke And Carbon Monoxide Detectors In Your Home? Yes Information not available 12/05/2020 Are You Passively Exposed To Smoke? No Information no t available 09/07/2022 How Much Tobacco Do You Smoke? No Information not available 03/10/2017 General Stress Level High Information not available 12/30/2017 Do You Use Sunscreen Routinely? No Information not available 12/05/2020 Has Tobacco Cessation Counseling Been Provided? Yes Information not available 12/05/2020 On What Date Was Tobacco Cessation Counseling Provided? 02/20/2025 Information not available 02/20/2025 How Many Years Have You Smoked Tobacco? 0 Information not available 03/10/2017 Sex: Unknown Functional Status Question Answer Note LastModified by Organizat ion Details LastModified Time Do you use any illicit or recreational drugs? Yes Marijuana Information not available 04/23/2021 Do you or have you ever used any other forms of tobacco or nicotine? No Information not available 12/05/2020 What is your level of alcohol consumption? None Information not available 04/23/2021 Are you currently employed? No Information not available 12/30/2017 Are you able to care for yourself independently? Yes Information not available 10/31/2020 What is your exercise level? None Information not available 12/30/2017 Mental Status None recorded. Family History Relationship Description Onset Age of this Age Resolved Age Notes LastModified by Organization Details LastModified Time Father No current problems or disability [email or web address] Not available 10/31 10:07:20 Mother No current problems or disability [email or web address] Not available 10/31 10:07:20 Mother Cerebrovascu lar accident oajao Not available 11/2020 10:07:43 Medical History Condition Response Coronary Artery Disease N Other N Atrial Fibrillation N High Blood Pressure N Emphysema N Glaucoma N Depression N COPD N Blood Clots N Anesthesia Complications N Anxiety Disorder N Muscle, Joint, or Bone Problems N Arthritis N Hearing Loss N Acid Reflux (GERD) N Cancer N Stroke N High Cholesterol N Liver Disease N Fibromyalgia N Headaches N Kidney Disease N Allergies/Hayfever N Heart Problems N Heart Conditions N Migraines Y Thyroid Problems N Kidney or Bladder Problems N Developmental Delay N GI Problems N Skin Problems N Anemia N Immune System Disorder N Heart Attack ([place]) N Diabetes N Bleeding Disorder N Seizures/Epilepsy N Tuberculosis N Hyperlipidemia N Asthma Y Allergies N Sleep Disorder Y GERD/Reflux N Hepatitis N Heart Disease N Hypertension N Heart Failure N Osteoporosis N Gynecological History Statement/Question Response Date of LMP 08/31/2016 Obstetrics History GPAL:G 0 P 0 0 0 0 Immunizations Vaccine Type Date Status Note Provider Nam e and Address Organization Details Recorded Time Hep B, adult 06/02/2018 completed Not Available [facility] 06/30/2023 04:39:13 Hep B, adult 05/03/2018 completed Not Available [facility] 06/30/2023 04:39:13 Tdap 03/10/2017 completed Not Available [facility] 09/16/2019 02:44:12 Past Encounters Encounter ID Performer Location Encounter Start Date Encounter Closed Date Diagnosis/Indication Diagnosis SNOMED-CT Code Diagnosis ICD10 Code Diagnosis Note [id number] [facility] [address] [place] [address] 68082-957 0 03/10/2017 14:19:34 03/10/2017 15:48:14 Asthma 157286336 J45.909 She was discharged home on Aerospan and Ventolin, she has failed Aerospan and she has been readmitted to the hospital. I will put her on Symbicort, side effects were discussed and a PA will be requested. Stop Aerospan, continue albuterol inhaler PRN, she should rinse her mouth after using the Symbicort, side effects were discussed including asthma related deaths Adult heal th examination 668857751 Z00.01 Screening for malignant neoplasm of breast 556447983 Z12.31 Acute exac erbation of asthma 867133625 J45.901 History of pneumonia 161 146657 Z87.01 Her follow up CXR confirms resolution of the RLL infiltrate Neuropathic pain 4620346 09 M79.2 She has developed nerve irritation from the blood gas or phlebetomy Immunization due 7410303 08 Z28.3 Overweight 598568002 E66 .3 History of subtotal thyroidectomy 570060785 Z98.890 Elevated blood-pressure reading without diagnosis of hypertension 010700655 R03.0 Discussed [id number] MD Tony Light (Adult Med) [address] [place] [address] 83349-791 0 03/31/2017 10:34:55 03/31/2017 11:57:48 Asthma 718530472 J45.909 Impaired f asting glycemia 840340653 R73.01 Discussed Foot pain 02085392 M79.6 71 Heel spur +/- PF Plantar fa sciitis of right foot 6377975605 1527772 M72.2 Immunization refused 275 557874 Z28.01 [id number] Dani Bang MD [facility] [address] [place] [address] 93442-299 0 08/20/2017 16:26:20 08/20/2017 17:48:08 Asthma 187202002 J45.909 She has failed Aerospan, she has been to the ER twice with her asthma since her last visit while she was compliant with her Symbicort 80/4.5. Detailed discussion on the need to avoid triggers including dust, preservati ves and I will increase her Symbicort to 160/4.5, side effects were discussed in detail and the need to obtain PFTS and establish care with a pulmonolog ist. Immunization refused 275 355100 Z28.01 Discussed Chronic sinusitis 817619 00 J32.9 She follows up with ENT, she has had multiple surgries and she has failed the Flonase ns and needs intermitte nt oral steroids. [id number] Dani Bang MD [facility] [address] [place] [address] 77178-778 0 12/10/2017 09:54:06 12/10/2017 10:39:32 Benign essential hypertension 8381990 I10 Discussed Impaired f asting glycemia 225107494 R73.01 Discussed Screening mammography 24 150498 Z12.31 Pain in right foot 13314 84836 03615 M79.671 Ankle pain 838403799 M25 .571 Asthma 281255363 J45.90 9 She needs a new mask for her nebulizer, I have reminded her not to use more than the recommende d dose of her Symbicort. Pigmented skin lesion 20 3025883 L81.9 [id number] Mendez Tripp MD [facility] [address] [address] 12/30/2017 09:52:10 01/05/2018 10:26:20 Moderate persistent asthma 719048925 J45.40 Asthma is probably not completely under control, continue Symbicort and ventolin Chronic sinusitis 911373 00 J32.9 Causing multiple problems, will check sinus Xray, CXR, IgE, CBC and give the patient Zithromax and singulair, Will add Flonase. She had multiple surgeries on her sinuses Chronic cough 01358810 R 05 Secondary to above. Obstructiv e sleep apnea syndrome 47043878 G47.33 She is using CPAP on regular basis History of cannabis abuse 7613425437 33639 F12.10 10 years [id number] [facility] [address] [place] [address] 18168[address]943 2 02/14/2018 10:58:38 02/28/2018 14:35:01 Moderate persistent asthma 644080810 J45.40 Asthma is probably not completely under control, continue Symbicort and ventolin, I will add Spiriva Chronic sinusitis 595110 00 J32.9 Causing multiple problems, will singulair, Patient has not been using Flonase because it does not help. She had multiple surgeries on her sinuses. She's being treated by ENT for 3 weeks with Ceftin. I will add Zithromax and Medrol lo Chronic cough 15648554 R 05 Secondary to above. Obstructiv e sleep apnea syndrome 89469149 G47.33 She has not been using CPAP for the past 2 weeks because of sickness. History of cannabis abuse 6988000344 72452 F12.10 10 years [id number] Francisco Phillips MD [facility] ([facility]) [address] [place] [address]15[address]807 2 03/08/2018 11:08:16 03/09/2018 14:31:47 Dermatofibroma 411329386 D23.9 consider folliculit is causing lesions to form. [id number] MD Tony Light (Adult Med) [address] [place] [address] 04/29/2018 11:49:44 04/29/2018 13:50:54 Immunization refused 234078788 Z28.01 Discussed History an d physical examination, pre-employment 460124559 Z02.1 Tuberculos is screening 572375543 Z11.1 Antibody measurement 352 7003 Z01.84 Asthma 544306409 J45.90 9 Bipolar disorder 7673210 4 F31.9 Anxiety 88377829 F41.9 [id number] MD Tony Light (Adult Med) [address] [place] [address] 17596-087 0 05/03/2018 09:26:38 05/04/2018 09:52:46 [id number] MD Tony Light (Adult Med) [address] [place] [address] 22662-904 0 06/02/2018 10:53:10 06/03/2018 09:34:10 Requires course of hepatitis B vaccination 119854493 Z28.3 She needs Hep B series at (0, 1 and 6 months) [id number] MD Tony Light (Adult Med) [address] [place] [address] 57016-921 0 08/11/2018 10:09:17 08/12/2018 09:28:44 Hand pain 74645424 M79.641 Arthritis? Doubt an infection with a relatively normal CBC and differenti al Anemia 397872925 D64.9 [id number] MD Tony Light (Adult Med) [address] [place] [address] 84930-331 0 10/27/2018 15:29:57 10/27/2018 16:56:40 Pain of left hip joint 8072629431 32801 M25.552 Sj gren's syndrome 30195443 M35.00 Asthma 302421692 J45.90 9 Low back pain 440661646 M54.5 [id number] MD Tony Light (Adult Med) [address] [place] [address] 12997-991 0 11/28/2018 09:46:31 11/29/2018 12:52:07 Urinary symptoms 476635290 R39.9 Irregular bowel habits 823128022 R19.4 Her xray of the LS spine suggests that she is constipate d, she however has a short transit time and soft stools. Musculoskeletal pain 279 056096 M79.10 [id number] MD Tony Light (Adult Med) [address] [place] [address] 88530-431 0 06/20/2019 14:51:13 06/20/2019 15:35:08 Bipolar disorder 27135194 F31.9 Influenza vaccination declined 388734132 Z28.21 Screening for malignant neoplasm of breast 370314022 Z12.31 General ex amination of patient 554099838 Z00.01 [id number] Michael Mccarthy MD [facility] [address] [place] [address] 22129-956 2 05/14/2020 10:14:38 05/15/2020 11:17:08 Chronic sinusitis 04494207 J32.9 Allergic rhinitis 629215 04 J30.9 [id number] [facility] [address] [place] [address] 23741-707 2 06/13/2020 14:00:32 06/13/2020 14:49:20 Chronic sinusitis 95634158 J32.9 Sensorineu ral hearing loss 73411396 H90.5 [id number] Michael Mccarthy MD [facility] [address] [address] 11/26/2020 10:43:56 12/04/2020 16:28:04 Chronic sinusitis 66577478 J32.9 Hypertroph y of nasal turbinates 63117910 J34.3 [id number] Dani Bang MD [facility] (Adult Med) [address] [place] [address] 18619-448 0 10/31/2020 09:43:39 10/31/2020 10:40:40 Atypical chest pain 312819935 R07.89 Intermitte nt palpitations 647445962 R00.2 Influenza vaccination declined 999285664 Z28.21 Asthma 483580828 J45.90 9 See the request for a referral Impaired f asting glycemia 881552881 R73.01 Discussed Abdominal pain 75873801 R10.9 Screening for malignant neoplasm of breast 851198576 Z12.31 [id number] [facility] [address] [place] [address] 85258-717 0 12/05/2020 09:42:57 12/06/2020 14:40:04 Essential hypertension 22787529 I10 Start HCTZ, side effects were discussed Stress 19586330 Z73.3 Influenza vaccination declined 148129341 Z28.21 Cystocele 537536961 N81. 10 Generalize d anxiety disorder 10167208 F41.1 Start Escitalopr am, side effects were discussed [id number] Tanner Mabry MD [facility] [address] [place] [address] 01/01/2021 12:34:57 01/02/2021 15:59:07 Pain in pelvis 60492442 R10.2 with discharge Mesh migration suspected. [id number] Michael Mccarthy MD [facility] [address] [place] [address] 01/23/2021 13:54:35 01/28/2021 10:10:07 Postoperative visit 993410879 Z09 start saline irrigation follow-up in 3 weeks [id number] [facility] [address] [place] [address] 02/25/2021 10:00:36 02/25/2021 12:42:19 Chronic sinusitis 47847100 J32.9 continue saline irrigation [id number] Dani Bang MD [facility] (Adult Med) [address] [place] [address] 48033[address] 0 04/23/2021 09:33:23 04/24/2021 06:10:23 Abdominal pain 89747164 R10.9 Referred to GI on 11/28/2018CT scan ordered 10/31/2020a bsUSGITria l of Omeprazole ER with severe abdominal pain Benign ess ential hypertension 6711710 I10 Discussed Immunization advised 310 709944 Z71.9 Family his tory of cancer of colon 790482440 Z80.0 Family his tory of aneurysm of blood vessel of brain 9733748380 6941217 Z82.49 [id number] Dani Bang MD [facility] (Adult Med) [address] [place] [address] 89893-829 0 05/27/2021 10:15:29 05/28/2021 12:11:33 Benign essential hypertension 5650595 I10 Improved but not optimal. Asthma 995533776 J45.90 9 It appears that her treatment is incomplete , she will discuss the omission of Advair/Wix alejandra with Dr Worley. Abdominal pain 27280890 R10.9 Referred to GI on 11/28/2018 and again on 04/23/2021 T scan ordered 10/31/2020a bs -Ricky -Malvin appointmen t is pendingOme prazole may have helped a bitER with severe abdominal painBentyl ? Influenza vaccination declined 172531373 Z28.21 Vaccine de clined by patient 1604613467 02 Z28.21 Unintentio nal weight loss 703904638 R63.4 [id number] Michael Mccarthy MD [facility] [address] [place] [address] 08/04/2021 13:46:03 08/04/2021 15:10:17 Acute sinusitis 99107999 J01.90 Hypothyroidism 66250899 E03.9 [id number] [facility] [address] [place] [address] 47085[address] 2 08/05/2021 10:05:28 08/05/2021 14:03:44 Acute sinusitis 68721390 J01.90 Hypothyroidism 03751776 E03.9 thyroid appears normal she should follow back with primary care for weight loss [id number] Michael [facility]cc[facility] MD [facility] [address] [place] [address] 11/24/2021 11:54:44 11/25/2021 14:14:53 Acute tonsillitis 01052239 J03.90 Chronic sinusitis 270520 00 J32.9 continue saline irrigation [id number] Michael Mccarthy MD [facility] [address] [place] [address] 53857-223 2 12/15/2021 09:58:30 12/26/2021 10:44:44 Chronic rhinitis 15613627 J31.0 [id number] Teresa Weber MD [facility] (Adult Med) [address] [place] [address] 01/07/2022 09:52:51 01/08/2022 12:59:44 Itching of lesion of skin 827088808 L29.9 She is only one in the family with tiny skin lumps , itching, on trunk, front and back and hands, went to ER twice , hydroxyzin e, triamcinol on cream not helping. NKDA, not . Itching and burning sensation. Also wants dermatolog ist referral. [id number] Michael Mccarthy MD [facility] [address] [place] [address] 04/06/2022 10:52:51 04/07/2022 11:55:45 Chronic sinusitis 07300943 J32.9 continue saline irrigation [id number] MD Tony Light (Adult Med) [address] [place] [address] 28153-397 0 07/02/2022 12:33:17 07/06/2022 11:27:10 Benign essential hypertension 7497641 I10 Uncontroll edRestart Amlodipine Influenza vaccination declined 288435634 Z28.21 Tear of me niscus of knee 740614064 S83.207A As per the orthopedic surgeon Screening for malignant neoplasm of breast 859239651 Z12.31 Pain in lower limb 95353 006 M79.605 General ex amination of patient 756565222 Z00.01 Noncomplia nce with medication regimen 047204166 Z91.A4 Body mass index 30+ - obesity 707168796 Z68.35 [id number] Dani Bang MD [facility] [address] [place] [address] 94153-648 0 07/29/2022 14:10:16 07/30/2022 15:42:41 Inguinal lymphadenopathy 650357610 R59.0 Pap chedu le colonoscop y Pain in lower limb 42201 006 M79.605 Screening for malignant neoplasm of colon 845793895 Z12.11 [id number] Maren Roberts DO [facility] [address] [place] [address] 09/07/2022 10:23:16 09/08/2022 07:53:30 Screening for malignant neoplasm of colon 031541996 Z12.11 Patient's first colonoscop y. FH of colon cancer in Mother.CBC and CMP in chart 07/14/2022 Unintentio nal weight loss 148703342 R63.4 45 lb weight loss in 1 year; no change in caloric intake or exerciseaw ait EGD and colonoscop y results Abdominal pain 47977090 R10.9 h/o gallbladde r mesh and cholecyste ctomy. Surgeon no longer in practice in [place]. Recommend eval with Dr. Block US abdomen 05/21/2021: post operative changes of cholecyste ctomy, otherwise unremarkab le abdominal US Diarrhea 17629604 R19.7 likely related to post surgical changes from cholecyste ctomy. Pending general surgery eval, may consider stool sample testing. Non-cardia c chest pain 959712196 R07.89 No issues with general anesthesia per patient during/aft er sinus surgery in June 2022.Has had cardiology workup that was negative. Await EGD results [id number] Jayme Block MD [facility] [address] [place] [address] 09/30/2022 10:34:26 10/01/2022 14:16:21 Pain in pelvis 42071296 R10.2 pain in pelvis of uncertain etiology. She is schedule for an upper and lower endoscopy. This should reveal any potential GI etiology. Biliary pathology seems unlikely given presentati on, prior history of cholecyste ctomy, and negative abdominal ultrasound . More likely she is experienci ng pain related to her sacroculpo pexy and will need evaluation from a urogynecol egist. Recommend referral if her endoscopic workup is negative. [id number] Dani Bang MD [facility] (Adult Med) [address] [place] [address] 10/20/2022 09:54:26 10/21/2022 09:39:32 Abdominal pain 17873780 R10.9 Chronic suprapubic and epigastric abdominal pain, inguinal lymphadeno ananth, relatively normal colonoscop y.CTEGD Previous OVReferred to GI on 11/28/2018 and again on 04/23/2021 T scan ordered 10/31/2020a bs -veUS -veGI appointmen t is pendingOme prazole may have helped a bitER with severe abdominal painBentyl ? Inguinal lymphadenopathy 572815081 R59.0 Pap olono scopy Benign ess ential hypertension 5839413 I10 Uncontroll edRestart Amlodipine Body mass index 30+ - obesity 614947376 Z68.35 [id number] MD Tony Light (Adult Med) [address] [place] [address]487[address] 0 12/02/2023 15:12:02 12/03/2023 14:56:59 Asthma 749163022 J45.909 Her Symbicort should be 1 or 2 puffs BID and not once a day, she should read the directions from the pulmonolog ist and rinse her mouth after each use.Nebuli zer OV 10/20/2023I t appears that her treatment is incomplete , she will discuss the omission of Advair/Wix alejandra with Dr Worley. Benign ess ential hypertension 5539330 I10 Uncontroll ed due to non compliance Restart Amlodipine General ex amination of patient 187305797 Z00.01 Body mass index 30+ - obesity 002546852 Z68.35 [id number] MD Tony Light (Adult Med) [address] [place] [address] 86724-796 0 04/20/2024 10:12:51 04/21/2024 08:05:59 Benign essential hypertension 2591496 I10 Increase Amlodipine to 10 mg po daily, side effects were discussed OV 12/02/2023Un controlled due to non compliance Restart Amlodipine Instabilit y of joint of right knee 9370256486 746466 M25.361 Impaired f asting glycemia 806834426 R73.01 Discussed Skin lesion 80798945 L98 .9 Lumbar radiculopathy 128 355534 M54.16 Neuropathy 478874607 G62 .9 Itching of lesion of skin 124627650 L29.9 She will be referred for the third time OV 01/07/2022 he is only one in the family with tiny skin lumps , itching, on trunk, front and back and hands, went to ER twice , hydroxyzin e, triamcinol on cream not helping. NKDA, not . Itching and burning sensation. Also wants dermatolog ist referral. [id number] MD Tony Light (Adult Med) [address] [place] [address]33[address] 0 06/20/2024 11:44:26 06/27/2024 09:12:13 Benign essential hypertension 8161742 I10 Stop Amlodipine (Hair loss)Start Losartan, side effects were discussed, including but not limited to headaches and dizziness OV 04/20/2024I ncrease Amlodipine to 10 mg po daily, side effects were discussed OV 12/02/2023Un controlled due to non compliance Restart Amlodipine Influenza vaccination declined 996039754 Z28.21 Lipoma of skin 870268507 D17.30 [id number] Dani Bang MD [facility] (Adult Med) [address] [place] [address] 98878-273 0 08/24/2024 15:17:46 08/25/2024 09:34:32 Benign essential hypertension 3464526 I10 StableCont inue Losartan 25 mg daily, although she was unable to confirm this. OV 06/20/2024 Stop Amlodipine (Hair loss)Start Losartan, side effects were discussed, including but not limited to headaches and dizziness OV 04/20/2024I ncrease Amlodipine to 10 mg po daily, side effects were discussed OV 12/02/2023Un controlled due to non compliance Restart Amlodipine Lumbar radiculopathy 128 662714 M54.16 [id number] Dani Bang MD [facility] (Adult Med) [address] [place] [address] 83507[address] 0 02/20/2025 10:41:53 02/21/2025 09:58:18 Benign essential hypertension 8610112 I10 Restart Losartan OV 08/24/2024 StableCont inue Losartan 25 mg daily, although she was unable to confirm this. OV 06/20/2024 Stop Amlodipine (Hair loss)Start Losartan, side effects were discussed, including but not limited to headaches and dizziness OV 04/20/2024I ncrease Amlodipine to 10 mg po daily, side effects were discussed OV 12/02/2023Un controlled due to non compliance Restart Amlodipine Lumbar radiculopathy 128 665211 M54.16 Her lower back pain with radicular symptoms are not any better, she has completed appropriat e physical therapy treatment and at this point in time, imaging with a MRI is indicated to further evaluate her lower back. Body mass index 30+ - obesity 630212179 Z68.33 Obese class I 9838335490 63742 E66.811 History of influenza 789 448302 Z87.09 Reduced mobility 7728184 Z74.09 Health Concerns Section Related Observation LastModified by Organization Detai ls LastModified Time None Recorded Concern Status LastModified by Organization Details LastModified Time None Recorded Advance Directives Directive N: Payers Insurance Date Sequence Insurance Name Policy Number Policy Todd Covered Member ID Todd Member ID Guarantor Name 02/17/2025 1 [facility] ON OR AFTER 02/27/21 (MEDICAID REPLACEMENT - HMO) Alyssa Park [id number] Alyssa Park 04/20/2024 1 [facility] PRIOR TO 02/27/2021 (MEDICAID REPLACEMENT - HMO) Alyssa Park [id number] Alyssa Park 04/20/2024 1 [facility] PRIOR TO 02/27/2021 (MEDICAID REPLACEMENT - HMO) Alyssa Park [id number] Alyssa Park 04/20/2024 2 [facility] (MEDICAID HMO) Alyssa Park [id number] Alyssa Park 04/20/2024 1 [facility] (MEDICAID REPLACEMENT - HMO) [id number] Alyssa Park [id number] Alyssa Park 04/20/2024 1 [facility] PRIOR TO 02/27/2021 (MEDICAID REPLACEMENT - HMO) Alyssa Park [id number] Alyssa Park OBGyn Episode No OBEpisode recorded.
[2025-03-26 11:45] LABS: HIV 1/2 Ab P24 Ag Result Negative (Negative)
[2025-03-26 13:59] LABS: Hepatitis B Surface Antigen Negative (Negative)
[2025-03-26 14:06] LABS: HAV RESULT Negative (Negative); Hepatitis B Core IgM Result Negative (Negative)
[2025-03-26 15:11] LABS: Syphilis IgG/IgM Antibody Reactive (Nonreactive)
[2025-03-27 07:08] LABS: HSV 1 IgG, Type Spec Reactive (Non Reactive); HSV 2 IgG, Type Spec Reactive (Non Reactive)
== END 2025-03-26 09:48 | disposition home or self-care (01) ==
LOC: ANHLAB 09:48
PROVIDERS: PCP Internal Medicine Infectious Disease; Visit Provider Obstetrics & Gynecology
DX: Z11.3 Encounter for screening for infections with a predominantly sexual mode of transmission (principal)
CPT/HCPCS: 36415; 80074; 86593; 86695; 86696; 86703; 86780; G0432